=== PATIENT | female | born 1970 | race Caucasian/White ===

== ENCOUNTER → 2019-02-07 07:41 | Outpatient (CLI) | payer OTHER, SELFPAY ==
--- NOTE | 2019-02-07 07:45 | BI_ITS ---
MAMMOGRAPHY - BILATERAL SCREENING REASON FOR EXAM: Female, 48 years old. Routine annual screening examination. PERTINENT HISTORY: Grandmother with breast cancer. TECHNIQUE: Digital bilateral breast martin (3D mammographic acquisition) in the CC and MLO projections. 2-D mediolateral oblique (MLO) and craniocaudad (CC) views of both breasts were obtained. CAD: Full Field Digital Mammography with Computer Added Detection was performed. COMPARISON: Comparison is made with prior outside examination dated November 10, 2012. FINDINGS: Breast Composition: The breasts are almost entirely fatty. There are no dominant masses or suspicious calcifications. Stable small benign-appearing right axillary lymph nodes. No other significant abnormalities are identified. There has been no significant change since the prior study. BI/SCREEN MAMM (CAD) W/MARTIN BILAT IMPRESSION: Stable bilateral screening mammogram. Yearly follow-up mammogram recommended. (A) ASSESSMENT CATEGORY: BIRADS Category 2: Benign. A letter regarding these results will be sent to the patient by the facility within 30 days. Approximately 10% of breast cancers are not detected by mammography. A normal mammogram should not delay biopsy of a clinically suspicious abnormality. [id number] Electronically Signed: Kraig Estrada, at 10:59 EDT , Service support ,
== END ==
PROVIDERS: Family Provider Family Medicine; PCP Family Medicine; Referring Provider Nurse Practitioner Women's Health; Visit Provider Nurse Practitioner Women's Health
DX: Z12.31 Encounter for screening mammogram for malignant neoplasm of breast (principal)
CPT/HCPCS: 77063; 77067

== ENCOUNTER → 2019-06-08 | Outpatient (CLI) | payer OTHER, SELFPAY ==
[2019-06-08 08:57] VITALS: BMI 57.2
[2019-06-13 17:08] LABS: HPV APTIMA, High Risk Negative (Negative)
== END | disposition home or self-care (01) ==
LOC: LABSPEC 17:10
PROVIDERS: PCP Family Medicine; Referring Provider Nurse Practitioner Women's Health; Visit Provider Nurse Practitioner Women's Health
DX: Z12.4 Encounter for screening for malignant neoplasm of cervix (principal)
CPT/HCPCS: 87624; 88175; G0145

== ENCOUNTER → 2020-05-28 17:44 | Outpatient (CLI) | payer OTHER, SELFPAY ==
[2019-06-08 08:57] VITALS: BMI 57.2
== END ==
PROVIDERS: PCP Family Medicine; Referring Provider Family Medicine; Visit Provider Family Medicine
DX: U07.1 COVID-19 (principal); R50.9 Fever, unspecified; R07.9 Chest pain, unspecified; R09.89 Other specified symptoms and signs involving the circulatory and respiratory systems; R05 Cough
CPT/HCPCS: 87635; C9803; U0003

== ENCOUNTER → 2020-06-21 13:24 | Outpatient (CLI) | payer OTHER, SELFPAY ==
[2019-06-08 08:57] VITALS: BMI 57.2
[2020-06-21 14:56] LABS: Absolute Lymphocyte Count 2.71 X10^3/uL (0.83-4.51); Absolute Neutrophil Count 6.4 X10^3/uL (2.0-7.7); Basophil# 0.05 X10^3/uL; Basophil% 0.5 % (0-1); Eosinophil# 0.19 X10^3/uL; Eosinophils% 1.8 % (0-5); Hematocrit 43.8 % (37-47); Hemoglobin 13.5 g/dL (12.0-15.0); Lymphocyte # 2.71 X10^3/ul (4.0); Lymphocyte % 26.3 % (19-41); Mean Corp Hgb Conc 30.8 g/dL (32-36); Mean Corpuscular Hgb 27.6 pg (27.0-32.0); Mean Corpuscular Volume 89.4 fL (81-99); Mean Platelet Vol. 9.7 fl (6.2-12.0); Monocyte# 0.94 X10^3/uL; Monocyte% 9.1 % (0-10); NRBC Flagged by Analyzer 0 % (0-5); Platelet Count 404 K/mm3 (150-450); RBC Distribution Width CV 13.7 % (11.6-14.6); RBC Distribution Width SD 44.9 fl (35.1-43.9); White Blood Count 10.3 K/mm3 (4.4-11.0)
[2020-06-21 15:32] LABS: Vitamin D,25 Hydroxy 32.6 ng/mL
[2020-06-21 16:57] LABS: ALB/GLOB Ratio 0.8 RATIO (0.9-2.4); AST(SGOT) 10 U/L (15-37); Alanine Aminotransfer ALT/SGPT 25 U/L (13-56); Albumin, Serum 3.3 g/dL (3.2-5.0); Alkaline Phosphatase 60 U/L (45-117); Anion Gap 7 (5-15); BUN 16 mg/dL (7-18); BUN/Creat Ratio 23.6 RATIO (10-20); Calcium,Total 8.4 mg/dL (8.5-10.1); Chloride 106 mmol/L (98-107); Creatinine, Serum 0.68 mg/dL (0.55-1.02); EST Glomerular Filtration Rate 98 mL/min (>60); Est Glom Filt Rate - Afr Amer 119 mL/min (>60); Follicle Stimulating Hormone 3.8 mIU/mL; Globulin 4.2 g/dL (2.2-4.2); Glucose 77 mg/dL (74-106); Luteinizing Hormone 4.4 mIU/mL; Potassium 3.9 mmol/L (3.5-5.1); Protein, Total 7.5 g/dL (6.4-8.2); Sodium Level 140 mmol/L (136-145); T4 Free Direct 1.07 ng/dL (0.76-1.46); Thyroid Stim Hormone (TSH) 1.93 uIU/mL (0.358-3.74)
== END ==
PROVIDERS: PCP Family Medicine; Visit Provider Family Medicine
DX: U07.1 COVID-19 (principal); J12.82 Pneumonia due to coronavirus disease 2019; E55.9 Vitamin D deficiency, unspecified; R53.83 Other fatigue; F32.9 Major depressive disorder, single episode, unspecified; N92.0 Excessive and frequent menstruation with regular cycle
CPT/HCPCS: 36415; 80053; 82306; 83001; 83002; 84439; 84443; 85025

== ENCOUNTER → 2022-05-27 | Outpatient (CLI) | payer OTHER, SELFPAY ==
--- NOTE | 2022-05-27 09:47 | BI_ITS ---
MAMMOGRAPHY - BILATERAL SCREENING REASON FOR EXAM: Female, 51 years old. Routine annual screening examination. PERTINENT HISTORY: Grandmother with breast cancer. TECHNIQUE: Digital bilateral breast martin (3D mammographic acquisition) in the CC and MLO projections. 2-D mediolateral oblique (MLO) and craniocaudad (CC) views of both breasts were obtained. CAD: Full Field Digital Mammography with Computer Added Detection was performed. COMPARISON: Comparison is made with prior study 02/07/2019. FINDINGS: Breast Composition: The breasts are almost entirely fatty. There are no dominant masses or suspicious calcifications. Stable small benign-appearing bilateral axillary lymph nodes. No other significant abnormalities are identified. There has been no significant change since the prior study. BI/SCRN MAMM (CAD)W/MARTIN BILAT IMPRESSION: Stable bilateral screening mammogram. Yearly follow-up mammogram recommended. (A) ASSESSMENT CATEGORY: BIRADS Category 2: Benign. A letter regarding these results will be sent to the patient by the facility within 30 days. Approximately 10% of breast cancers are not detected by mammography. A normal mammogram should not delay biopsy of a clinically suspicious abnormality. [id number] Electronically Signed: Kraig Estrada MD at 8:57 EST ,
== END | disposition home or self-care (01) ==
LOC: OPBI 09:44
PROVIDERS: PCP Family Medicine; Visit Provider Nurse Practitioner Women's Health
DX: Z12.31 Encounter for screening mammogram for malignant neoplasm of breast (principal)
CPT/HCPCS: 77063; 77067

== ENCOUNTER → 2022-09-18 | Outpatient (CLI) | payer OTHER, SELFPAY ==
[2022-09-18 18:01] LABS: Absolute Lymphocyte Count 3.07 X10^3/uL (0.83-4.51); Absolute Neutrophil Count 5.1 X10^3/uL (2.0-7.7); Basophil# 0.07 X10^3/uL; Basophil% 0.8 % (0-1); Eosinophil# 0.17 X10^3/uL; Eosinophils% 1.8 % (0-5); Hematocrit 43.6 % (37-47); Hemoglobin 14.2 g/dL (12.0-15.0); Lymphocyte # 3.07 X10^3/ul (0.83-4.51); Lymphocyte % 33.4 % (19-41); Mean Corp Hgb Conc 32.6 g/dL (32-36); Mean Corpuscular Hgb 29.2 pg (27.0-32.0); Mean Corpuscular Volume 89.7 fL (81-99); Mean Platelet Vol. 9.9 fl (6.2-12.0); Monocyte# 0.75 X10^3/uL; Monocyte% 8.2 % (0-10); NRBC Flagged by Analyzer 0 % (0-5); Neutrophil # 5.08 X10^3/uL (2.7-7.7); Neutrophil % 55.3 % (47-70); Platelet Count 411 K/mm3 (150-450); RBC Distribution Width CV 12.5 % (11.6-14.6); RBC Distribution Width SD 41.2 fl (35.1-43.9); Red Blood Count 4.86 M/mm3 (4.2-5.4); White Blood Count 9.2 K/mm3 (4.4-11.0)
[2022-09-18 18:31] LABS: ALB/GLOB Ratio 0.9 RATIO (0.9-2.4); AST(SGOT) 9 U/L (15-37); Alanine Aminotransfer ALT/SGPT 19 U/L (13-56); Albumin, Serum 3.5 g/dL (3.2-5.0); Alkaline Phosphatase 49 U/L (45-117); Anion Gap 6 (5-15); BUN 8 mg/dL (7-18); BUN/Creat Ratio 12.8 RATIO (10-20); Calcium,Total 9.1 mg/dL (8.5-10.1); Chloride 105 mmol/L (98-107); Cholesterol 182 mg/dL (200); Creatinine, Serum 0.63 mg/dL (0.55-1.02); EST Glomerular Filtration Rate 107 mL/min (>60); Est Glom Filt Rate - Afr Amer 129 mL/min (>60); Glucose 75 mg/dL (74-106); High Density Lipoprotein 50 mg/dL; Protein, Total 7.5 g/dL (6.4-8.2); Sodium Level 137 mmol/L (136-145); Triglycerides 59 mg/dL; Very Low Density Lipoprotein 12 mg/dL (5-40)
[2022-09-18 18:39] LABS: Vitamin D,25 Hydroxy 34.4 ng/mL
== END | disposition home or self-care (01) ==
LOC: BFHLAB 16:37
PROVIDERS: PCP Nurse Practitioner Family; Visit Provider Nurse Practitioner Family
DX: Z00.00 Encounter for general adult medical examination without abnormal findings (principal); E55.9 Vitamin D deficiency, unspecified; R73.9 Hyperglycemia, unspecified
CPT/HCPCS: 36415; 80053; 80061; 82306; 83036; 85025

== ENCOUNTER → 2023-09-21 | Outpatient (CLI) | payer OTHER, SELFPAY ==
--- NOTE | 2023-09-21 08:12 | BI_ITS ---
MAMMOGRAPHY - BILATERAL SCREENING 3-D TOMOSYNTHESIS REASON FOR EXAM: Female, 53 years old. SCREENING PERTINENT HISTORY: No significant family history. TECHNIQUE: 2-D mammograms and 3-D Tomosynthesis of the breast (s) were performed. CAD was performed. COMPARISON: 05/27/2022 FINDINGS: The breast composition is composed of scattered fibroglandular density. Scattered benign calcifications are seen. No dense spiculated masses or suspicious microcalcifications are identified. No architectural distortion is identified. There is no skin thickening or retraction. There has been no significant change since the prior study. BI/SCRN MAMM (CAD)W/MARTIN BILAT IMPRESSION: No mammographic signs of malignancy. Routine yearly mammograms recommended. ASSESSMENT CATEGORY: BIRADS Category 1: Negative. A letter regarding these results will be sent to the patient by the facility within 30 days. FOLLOW UP RECOMMENDATION: Yearly follow up mammogram recommended. (A) Approximately 10% of breast cancers are not detected by mammography. A normal mammogram should not delay biopsy of a clinically suspicious abnormality. Electronically Signed: Tam Florez MD at 23:55 EDT ,
[2023-09-21 13:38] LABS: Absolute Lymphocyte Count 2.96 X10^3/uL (0.83-4.51); Absolute Neutrophil Count 4.2 X10^3/uL (2.0-7.7); Basophil# 0.08 X10^3/uL; Eosinophil# 0.17 X10^3/uL; Eosinophils% 2.1 % (0-5); Hematocrit 44.5 % (37-47); Hemoglobin 14.7 g/dL (12.0-15.0); Lymphocyte # 2.96 X10^3/ul (0.83-4.51); Lymphocyte % 36.7 % (19-41); Mean Corpuscular Hgb 29.1 pg (27.0-32.0); Mean Corpuscular Volume 87.9 fL (81-99); Mean Platelet Vol. 9.7 fl (6.2-12.0); Monocyte# 0.67 X10^3/uL; Monocyte% 8.3 % (0-10); NRBC Flagged by Analyzer 0 % (0-5); Neutrophil # 4.15 X10^3/uL (2.7-7.7); Neutrophil % 51.5 % (47-70); Platelet Count 428 K/mm3 (150-450); RBC Distribution Width CV 12.7 % (11.6-14.6); Red Blood Count 5.06 M/mm3 (4.2-5.4); White Blood Count 8.1 K/mm3 (4.4-11.0)
[2023-09-21 14:09] LABS: ALB/GLOB Ratio 0.9 RATIO (0.9-2.4); AST(SGOT) 12 U/L (15-37); Alanine Aminotransfer ALT/SGPT 28 U/L (13-56); Albumin, Serum 3.6 g/dL (3.2-5.0); Alkaline Phosphatase 53 U/L (45-117); Anion Gap 8 (5-15); BUN 8 mg/dL (7-18); BUN/Creat Ratio 12.3 RATIO (10-20); Calcium,Total 9.1 mg/dL (8.5-10.1); Chloride 106 mmol/L (98-107); Cholesterol 225 mg/dL (200); Creatinine, Serum 0.65 mg/dL (0.55-1.02); EST Glomerular Filtration Rate 102 mL/min (>60); Est Glom Filt Rate - Afr Amer 123 mL/min (>60); Globulin 4.1 g/dL (2.2-4.2); Glucose 100 mg/dL (74-106); High Density Lipoprotein 49 mg/dL; Protein, Total 7.7 g/dL (6.4-8.2); Sodium Level 139 mmol/L (136-145); Triglycerides 132 mg/dL; Very Low Density Lipoprotein 26 mg/dL (5-40); Vitamin D,25 Hydroxy 41.3 ng/mL
== END | disposition home or self-care (01) ==
PROVIDERS: PCP Nurse Practitioner Family; Referring Provider Nurse Practitioner Family; Visit Provider Nurse Practitioner Family
DX: Z12.31 Encounter for screening mammogram for malignant neoplasm of breast (principal); Z00.01 Encounter for general adult medical examination with abnormal findings; E55.9 Vitamin D deficiency, unspecified
CPT/HCPCS: 36415; 77063; 77067; 80053; 80061; 82306; 85025

== ENCOUNTER 2024-01-10 08:55 | Day surgery (SDC) | payer OTHER, SELFPAY ==
[2024-01-10] VITALS (7 sets, daily range): BP systolic 107–127; BP diastolic 68–80; PULSE 82–90; RESP 16–18; TEMP 36.1–36.3; O2SAT 98–100; BMI 45.9
--- NOTE | 2024-01-10 09:04 | PRE.ANES_ITS ---
ASA Classification* ASA Classification ASA Classification: 2 Assessment & Plan Anesthesia* Anesthesia Assessment Anesthesia Assessment: Discussed sedation and/or anesthesia options, risks, benefits, and alternatives with patient/parents/legal guardian/POA. Questions invited. The patient/parents/legal guardian/POA seems to understand and agrees to proceed with anesthesia plan. Reviewed the physical assessment, medical history, allergy history and patient home medications list prior to surgery/procedure/anesthetic and documented any changes. Performed airway and anesthesia risk assessments. Anesthesia Type Anesthesia Type: MAC Anesthesia Focused Assessment* Airway Assessment Mouth opens: >3 cm Mallampati Score: II Focused Labs Anesthesia Preop lab: CBC WBC 8.1 K/mm3 (4.4-11.0) 09/21/23 12:53 RBC 5.06 M/mm3 (4.2-5.4) 09/21/23 12:53 Hgb 14.7 g/dL (12.0-15.0) 09/21/23 12:53 Hct 44.5 % (37-47) 09/21/23 12:53 Plt Count 428 K/mm3 (150-450) 09/21/23 12:53 CHEMISTRY Potassium 4.0 mmol/L (3.5-5.1) 09/21/23 12:53 Sodium 139 mmol/L (136-145) 09/21/23 12:53 BUN 8 mg/dL (7-18) 09/21/23 12:53 Creatinine 0.65 mg/dL (0.55-1.02) 09/21/23 12:53 Glucose 100 mg/dL (74-106) 09/21/23 12:53 TSH 1.93 uIU/mL (0.358-3.74) 06/21/20 13:24 COAG Pre-Assessment Diagnosis/Proposed Procedure Planned Operative Procedure(s): COLONOSCOPY-OA Anesthesia History Anesthesia History - [employer]: Anesthesia History - [employer] Hx Hospitalization No 01/06/24 09:53 Any Problems With Anesthesia No 01/06/24 09:53 Cholinesterase deficiency No 01/06/24 09:53 You/Your Family Experience No 01/06/24 09:53 fever (hyperthermia) with Relationship Recent Exposure to Contagious Disease Does patient have nerve No 01/06/24 09:53 stimulator Patient instructed to have device shut off --Does patient have Pacemaker or ICD? When Was Last Pacemaker Check QUESTION #4 FULL TEXT: You/Your Family Experience fever (hyperthermia) with Anesthesia Last Oral Intake Last Oral intake: Last Oral Intake NPO since Meds taken in AM with sips of water? Meds patient instructed to take am of surgery PONV PONV - [employer]: PONV - [employer] Female Yes 01/06/24 09:53 HX of Motion Sickness No 01/06/24 09:53 HX of N/V After Surgery No 01/06/24 09:53 Non-Smoker Yes 01/06/24 09:53 Duration of Surgery greater No 01/06/24 09:53 than 60 minutes Number of Risk Factors 2 01/06/24 09:53 PONV Score Moderate Risk 01/06/24 09:53 Height & Weight Height & Weight: Anesthesia: Height & Weight Height 5 ft 3 in 11/23/23 11:58 Respiratory Assessment Respiratory Assessment - [employer]: Respiratory Tract Infection Hx - [employer] Hx Respiratory Tract Infection No 01/06/24 09:53 STOP Sleep Apnea STOP Sleep Apnea - [employer]: STOP Sleep Apnea - [employer] Hx Hypertension No 01/06/24 09:53 Hx Sleep Apnea No 01/06/24 09:53 CPAP BIPAP Do you snore loudly (louder No 01/06/24 09:53 than talking or can be heard Do you often feel tired/ No 01/06/24 09:53 fatigued/ sleepy during daytime? Has anyone observed you stop No 01/06/24 09:53 breathing during sleep? STOP Results Negative 01/06/24 09:53 QUESTION #5 FULL TEXT : Do you snore loudly (louder than talking or can be heard through closed doors)? Tobacco Use History Tobacco Use History - [employer]: Tobacco Use History - [employer] Tobacco Use Smoking Status Former smoker 01/06/24 09:53 Hx Tobacco Use No 01/06/24 09:53 Years Smoking Packs Smoked per Day Smoking Cessation Date was No - quit smoking greater 01/06/24 09:53 within the last 15 years than 15 years ago Hx Smoking Cessation Date Hx Smoking Cessation Counseling Hematologic Medial History Hematologic Hx - [employer]: Hematologic Medical Hx - dry cleaner Hx of Blood Transfusion No 01/06/24 09:53 Hx of Transfusion in last 3 No 01/06/24 09:53 Months Date of Last Transfusion (if within last 3 months) Ever experience any problems No 01/06/24 09:53 with transfusion(s)? Specify any problems Hx of Preganancy in last 3 No 01/06/24 09:53 Months Nurse Filling Out Transfusion VCHRISTIN 01/06/24 09:53 & Questions: Date: 01/06/24 01/06/24 09:53 Time: :54 01/06/24 09:53 Patient unable to answer at this time (ie. confused, unrespo /Reproduction History /Reproductive History - [employer]: /Reproductive Hx- [employer] Hx Now No 01/06/24 09:53 Gestational Age (in weeks): EDC: Hx Hx Para Hx Section SAB No 01/06/24 09:53 Active Medications Active Medications: Current Medications Generic Name Dose Route Start Last Admin Trade Name Freq PRN Reason Stop Dose Admin Lactated Ringer's 1,000 mls @ 15 mls/hr 01/10/24 09:15 IV .Q48H TAWNYA PFSH Medical History Wears glasses Post-menopausal Arthritis Former smoker Anxiety Attention deficit disorder (ADD) in adult Obesity Home Medications ?Medication ?Instructions ?Recorded ?Last Taken ?Type wxgahvphgtau-Cr-khvj-minerals 1 tab PO DAILY 06/08/19 Unknown History (Multiple Vitamin, Womens tablet) lorazepam 0.5 mg tablet 0.5 mg PO DAILY PRN anxiety 05/27/22 Unknown History cholecalciferol (vitamin D3) 50 50 mcg PO DAILY 11/23/23 Unknown History mcg (2,000 unit) capsule magnesium oxide 200 mg PO DAILY 11/23/23 Unknown History dextroamphetamine-amphetamine ER 2 cap PO DAILY 01/06/24 Unknown History 30 mg 24hr capsule,extend release zinc gluconate 50 mg tablet 50 mg PO DAILY 01/06/24 Unknown History Allergy/AdvReac Type Severity Reaction Status Date / Time naproxen Allergy Mild Swelling Verified 01/06/24 09:43 Sulfa (Sulfonamide Allergy Swelling Verified 01/06/24 09:43 Antibiotics) Family History Mother Heart disease Arthritis Grandmother Bleeding disorder Grandmother Breast cancer Father Heart disease Myocardial infarction Diabetes type 2 Grandfather , age 39 Myocardial infarction Brother Cancer Surgical History History of endometrial ablation History of carpal tunnel surgery Hx of section Social History adopted: No household members: family housing: house number of children: 3 current occupational status: employed current occupation: [employer] pets and animals: Yes sexually active: Yes Smoking Status: Former smoker second hand exposure: Yes alcohol intake: current alcohol intake frequency: a few times a month Alcohol type: wine substance use type: does not use seatbelt use: always do you feel safe at home: Yes additional social history: - Abundio Review of Systems (Anesthesia) ROS Narrative System reviewed and no additional complaints, except as documented.
[2024-01-10] MEDS: Lactated Ringers 1,000 ML 15 ML IV (09:19)
--- NOTE | 2024-01-10 10:21 | PCM.HP.STD ---
HPI - General General Date of Admission: 01/10/24 Date of Service: 01/10/24 Chief Complaint: Screening colonoscopy HPI Narrative ROBLES FELTON, is a 53 F who presents today for screening colonoscopy. She is never had a colonoscopy in the past. She denies any chest pain or shortness of breath. She has past medical history of mild anxiety and ADHD which is controlled with medicines. All other 16 review of systems are negative except those pertinent positive mentioned HPI. [facility] Medical History Wears glasses Post-menopausal Arthritis Former smoker Anxiety Attention deficit disorder (ADD) in adult Obesity Home Medications ?Medication ?Instructions ?Recorded ?Last Taken ?Type qzqaaumoxmye-Dc-crrs-minerals 1 tab PO DAILY 06/08/19 01/09/24 History (Multiple Vitamin, Womens tablet) lorazepam 0.5 mg tablet 0.5 mg PO DAILY PRN anxiety 05/27/22 Unknown History cholecalciferol (vitamin D3) 50 50 mcg PO DAILY 11/23/23 01/09/24 History mcg (2,000 unit) capsule magnesium oxide 200 mg PO DAILY 11/23/23 01/09/24 History dextroamphetamine-amphetamine ER 2 cap PO DAILY 01/06/24 01/09/24 History 30 mg 24hr capsule,extend release zinc gluconate 50 mg tablet 50 mg PO DAILY 01/06/24 01/09/24 History Allergy/AdvReac Type Severity Reaction Status Date / Time naproxen Allergy Mild Swelling Verified 01/10/24 09:18 Sulfa (Sulfonamide Allergy Swelling Verified 01/10/24 09:18 Antibiotics) Family History Mother Heart disease Arthritis Grandmother Bleeding disorder Grandmother Breast cancer Father Heart disease Myocardial infarction Diabetes type 2 Grandfather , age 39 Myocardial infarction Brother Cancer Surgical History History of endometrial ablation History of carpal tunnel surgery Hx of section Social History adopted: No household members: family housing: house number of children: 3 current occupational status: employed current occupation: [employer] pets and animals: Yes sexually active: Yes Smoking Status: Former smoker second hand exposure: Yes alcohol intake: current alcohol intake frequency: a few times a month Alcohol type: wine substance use type: does not use seatbelt use: always do you feel safe at home: Yes additional social history: - Abundio ROS Review of Systems ROS Unobtainable: other Constitutional Constitutional: Denies fatigue, fever(s), poor appetite, weight gain or weight loss ENT HEENT: Denies mouth lesions Cardiovascular Cardiovascular: Denies abdominal bloating, abdominal edema or abdominal pain Respiratory/Chest Respiratory/Chest: Denies change in mental status, change in phlegm color, chest congestion or chest tightness Gastrointestinal Gastrointestinal: Denies belching, bloating, change in bowel habits, change in stool character, chewing difficulty, coffee ground emesis, constipation, cramping, diarrhea, dyspepsia, dysphagia, early satiety, excessive flatus, fecal incontinence, heartburn, hematemesis, hematochezia, hemorrhoids, loose stools, melena, nausea, odynophagia, rectal bleeding, tenesmus, vomiting or weight changes Genitourinary Genitourinary: Denies abdominal discomfort, burning urination or itching Musculoskeletal Musculoskeletal: Reports as per HPI; Denies muscle weakness or myalgias Integumentary Integumentary: Denies jaundice Neurologic Neurologic: Denies lack of coordination or weakness Psychiatric Psychiatric: Denies confusion, depression, memory loss, mood swings, paranoia or suicidal ideation Endocrine Endocrinology: Denies systems reviewed and no addt'l complaints, except as documented Hematologic/Lymphatic Hematologic/Lymphatic: Denies anemia, easy bleeding, easy bruising or lymphadenopathy Allergic/Immunologic Allergic/Immunologic: Denies systems reviewed and no addt'l complaints, except as documented Vital Signs Vital Signs Vital Signs: 01/10/24 09:20 01/10/24 09:20 Temperature 97.3 F L Temperature Source Temporal Pulse Rate 89 Respiratory Rate 18 Respiratory Pattern Normal Blood Pressure 127/73 H Blood Pressure Mean 91 Blood Pressure Source Monitor Blood Pressure Position Sitting Blood Pressure Location Right Arm Pulse Ox 100 Oxygen Delivery Method Room Air Weight Weight: 259 lb 6.4 oz Body Mass Index (BMI) 45.9 Physical Exam Const alert, oriented x3, no apparent distress, healthy appearing and well nourished General Appearance: cooperative, comfortable, well kempt and well developed Orientation / Consciousness: awake and oriented to person HEENT Head and Scalp: normocephalic and atraumatic Face and Sinus: normal facial exam Mouth: oral and palatal mucosa normal Eyes General Eye: normal appearance of both eyes Neck full ROM Lymph Lymphatic: no lymphadenopathy noted Chest inspection of chest normal Resp normal respiratory effort and no use of accessory muscles Cardio regular rate and regular rhythm GI normal to inspection, nondistended, normoactive bowel sounds, soft to palpation, non-tender, non-distended and no masses Auscultation: normoactive bowel sounds Palpation: soft Percussion: normal to percussion Rectal Exam: visual inspection normal and normal sphincter tone no CVA tenderness Back/Spine no CVA tenderness and normal ROM Extremity normal to inspection Peripheral Pulses: Yes pulses 2+ throughout Skin no rashes or lesions noted General Skin Exam: no breakdown, elasticity normal and turgor normal Neuro oriented x3 Motor Exam: strength 5/5 throughout Psych mental status grossly normal Appearance: grossly normal Attitude: calm Activity / Motor Behavior: appropriate eye contact Speech: normal speech Thought Process: normal thought process Thought Content: normal thought content Attention / Concentration: attention grossly intact Memory / Cognition: memory grossly intact Insight: insight good Judgement: judgement good Assessment & Plan Assessment/Plan (1) Encounter for screening for malignant neoplasm of colon: PLAN: She was explained alternatives, risk, benefits including not withstanding bleeding, infection, sepsis, perforation, need for emergent urgent . She will have an ASA of 3.
--- NOTE | 2024-01-10 10:48 | OP.CCLET_ITS ---
01/10/2024 Evgeny Lockwood Re : Colonoscopy procedure for Jackie Woods Dear Brennen This procedure was performed on Wednesday, January 10, 2024. My impressions and recommendations are as follows: Impressions : - Diverticulosis in the recto-sigmoid colon, in the sigmoid colon and in the descending colon. - The examination was otherwise normal on direct and retroflexion views. - No specimens collected. Recommendations : - Discharge patient to home. - Resume previous diet. - Continue present medications. - Repeat colonoscopy in 10 years for screening purposes. My findings are described in the full procedure note, which is enclosed. If I can be of further assistance, please feel free to contact me at . Sincerely, Trell Reyes, 01/10/2024 10:48:14 AM This report has been signed electronically.
--- NOTE | 2024-01-10 10:48 | OP.COLON_ITS ---
Patient Name: Jackie Woods Procedure Date: 01/10/2024 10:24 AM Date of : 1970 Age: 53 Procedure: Colonoscopy Indications: Screening for colorectal malignant neoplasm Providers: Trell Reyes DO Medicines: Monitored Anesthesia Care Patient Profile: This is a 53 year old female. Refer to note in patient chart for documentation of history and physical. Last Colonoscopy: none. The patient's first colonoscopy is today. Complications: No immediate complications. Procedure: Pre-Anesthesia Assessment: - Prior to the procedure, a History and Physical was performed, and patient medications and allergies were reviewed. The patient is competent. The risks and benefits of the procedure and the sedation options and risks were discussed with the patient. All questions were answered and informed consent was obtained. Patient identification and proposed procedure were verified by the physician in the pre-procedure area. Mental Status Examination: alert and oriented. Airway Examination: normal oropharyngeal airway and neck mobility. Respiratory Examination: clear to auscultation. CV Examination: normal. Prophylactic Antibiotics: The patient does not require prophylactic antibiotics. Prior Anticoagulants: The patient has taken no anticoagulant or antiplatelet agents except for NSAID medication. ASA Grade Assessment: II - A patient with mild systemic disease. After reviewing the risks and benefits, the patient was deemed in satisfactory condition to undergo the procedure. The anesthesia plan was to use monitored anesthesia care (MAC). Immediately prior to administration of medications, the patient was re-assessed for adequacy to receive sedatives. The heart rate, respiratory rate, oxygen saturations, blood pressure, adequacy of pulmonary ventilation, and response to care were monitored throughout the procedure. The physical status of the patient was re-assessed after the procedure. After I obtained informed consent, the scope was passed under direct vision. Throughout the procedure, the patient's blood pressure, pulse, and oxygen saturations were monitored continuously. The colonoscope was introduced through the anus and advanced to the cecum, identified by appendiceal orifice and ileocecal valve. The colonoscopy was performed without difficulty. The patient tolerated the procedure well. The quality of the bowel preparation was adequate. The ileocecal valve, appendiceal orifice, and rectum were photographed. Scope In: 10:31:45 AM Scope Withdrawal Time 0 hours 8 minutes 34 seconds Scope Out: 10:44:04 AM Total Procedure Duration Time 0 hours 12 minutes 19 seconds Findings: The perianal and digital rectal examinations were normal. Multiple small-mouthed diverticula were found in the recto-sigmoid colon, sigmoid colon and descending colon. The exam was otherwise without abnormality on direct and retroflexion views. Impression: - Diverticulosis in the recto-sigmoid colon, in the sigmoid colon and in the descending colon. - The examination was otherwise normal on direct and retroflexion views. - No specimens collected. Recommendation: - Discharge patient to home. - Resume previous diet. - Continue present medications. - Repeat colonoscopy in 10 years for screening purposes. Procedure Code(s): --- Professional --- G0121, Colorectal cancer screening; colonoscopy on individual not meeting criteria for high risk CPT copyright 2021 [employer]. All rights reserved. The codes documented in this report are preliminary and upon pierce and shave press operator review may be revised to meet current compliance requirements. Trell Reyes DO 01/10/2024 10:48:14 AM This report has been signed electronically. Number of Addenda: 0 Note Initiated On: 01/10/2024 10:24 AM
--- NOTE | 2024-01-10 10:52 | PCM.POST.ANE ---
Anesthesia: Postop Eval I Current Vital Signs Temperature: 97.2 F Pulse Rate: 84 Blood Pressure: 125/68 Respiratory Rate: 16 Pulse Ox: 98 Oxygen Delivery Method: Room Air Assessment Airway patent: Yes Spontaneous unlabored respirations: Yes Mental status: Awake and Calm nausea: No Vomiting: No Anesthesia Complication: No Fluid Hydration Crystalloid volume administer (ml): 500 Total IV fluid infused: 500 Progress Note Anesthesia document: Postop Eval 1 completed: Yes
--- NOTE | 2024-01-10 10:55 | PCM.POSTANE2 ---
Anesthesia Postop Eval I Sum Postop Eval Completion status Anesthesia document: Postop Eval 1 completed: Yes Anesthesia Postop Eval I Summary Anesthesia Postop Eval I Summary: Anesthesia Postop Eval I: Assessment Summary Airway patent Yes 01/10/24 10:53 [email or web address] Spontaneous unlabored Yes 01/10/24 10:53 [email or web address] respirations Mental status Awake,Calm 01/10/24 10:53 [email or web address] nausea No 01/10/24 10:53 [email or web address] Vomiting No 01/10/24 10:53 [email or web address] Anesthesia Postop Eval I: Fluid Summary Crystalloid volume administer 500 01/10/24 10:53 [email or web address] (ml) Colloids volume administered ( ml) Blood Product volume administered (ml) Total IV fluid infused 500 01/10/24 10:53 [email or web address] Anesthesia Postop Eval I: Summary Notes Anesthesia Complication No 01/10/24 10:53 [email or web address] Anesthesia Complication Comment: Post-operative progress note Anesthesia: Postop Eval II Evaluation Mental status: Awake Pain Level: 0 nausea: No Vomiting: No
== END 2024-01-10 11:16 | disposition home or self-care (01) ==
LOC: EN 08:57 → AC 08:58
PROVIDERS: PCP Nurse Practitioner Family; Referring Provider Nurse Practitioner Family; Visit Provider Internal Medicine Gastroenterology
PROC: 0DJD8ZZ Inspection of Lower Intestinal Tract, Via Natural or Artificial Opening Endoscopic (ICD-10-PCS; CPT 45378; principal; 2024-01-10 09:55)
DX: Z12.11 Encounter for screening for malignant neoplasm of colon (principal); K57.30 Diverticulosis of large intestine without perforation or abscess without bleeding; F41.9 Anxiety disorder, unspecified; Z79.899 Other long term (current) drug therapy; Z87.891 Personal history of nicotine dependence
CPT/HCPCS: 45378; J7120; J2405

== ENCOUNTER → 2024-09-28 | Outpatient (CLI) | payer BC, SELFPAY ==
[2024-09-28 10:41] LABS: Absolute Lymphocyte Count 2.69 X10^3/uL (0.83-4.51); Absolute Neutrophil Count 5.5 X10^3/uL (2.0-7.7); Basophil# 0.07 X10^3/uL; Basophil% 0.8 % (0-1); Eosinophil# 0.18 X10^3/uL; Hematocrit 42.5 % (37-47); Hemoglobin 13.7 g/dL (12.0-15.0); Lymphocyte # 2.69 X10^3/ul (0.83-4.51); Lymphocyte % 29.4 % (19-41); Mean Corp Hgb Conc 32.2 g/dL (32-36); Mean Corpuscular Volume 86.9 fL (81-99); Mean Platelet Vol. 9.8 fl (6.2-12.0); Monocyte# 0.67 X10^3/uL; Monocyte% 7.3 % (0-10); NRBC Flagged by Analyzer 0 % (0-5); Neutrophil # 5.48 X10^3/uL (2.7-7.7); Neutrophil % 59.8 % (47-70); Platelet Count 397 K/mm3 (150-450); RBC Distribution Width CV 13.7 % (11.6-14.6); RBC Distribution Width SD 43.7 fl (35.1-43.9); Red Blood Count 4.89 M/mm3 (4.2-5.4); White Blood Count 9.2 K/mm3 (4.4-11.0)
[2024-09-28 11:35] LABS: ALB/GLOB Ratio 1.3 RATIO (0.9-2.4); AST(SGOT) 18 U/L (<=31); Alanine Aminotransfer ALT/SGPT 24 U/L (<=34); Albumin, Serum 4.3 g/dL (3.5-5.0); Alkaline Phosphatase 70 U/L (35-104); Anion Gap 14 (5-15); BUN 11 mg/dL (4-19); BUN/Creat Ratio 32.2 RATIO (10-20); Calcium,Total 9.1 mg/dL (7.6-11.0); Carbon Dioxide 21.4 mmol/L (21.0-32.0); Chloride 104 mmol/L (98-108); Cholesterol 249 mg/dL (<=200); Creatinine, Serum 0.34 mg/dL (0.70-1.20); EST Glomerular Filtration Rate 123 (>60); Estradiol 12.3 pg/mL; Follicle Stimulating Hormone 37.1 mIU/mL; Globulin 3.2 g/dL (2.2-4.2); Glucose 92 mg/dL (70-99); High Density Lipoprotein 37 mg/dL; Low Density Lipoprotein Calc. 145 mg/dL; Luteinizing Hormone 27.4 mIU/mL; Potassium 3.8 mmol/L (3.3-5.1); Protein, Total 7.4 g/dL (5.9-8.4); Sodium Level 140 mmol/L (133-145); Triglycerides 336 mg/dL; Very Low Density Lipoprotein 67 mg/dL (5-40); Vitamin D,25 Hydroxy 79.2 ng/mL (30-100); cholesterol:hdl ratio screen 6.69
[2024-09-28 12:18] LABS: LDH 162 U/L (84-246)
[2024-09-29 05:07] LABS: PROGESTERONE 0.3 ng/mL (.); PROLACTIN 10.5 ng/mL (3.6-25.2)
== END | disposition home or self-care (01) ==
LOC: MTLAB 08:44
PROVIDERS: PCP Nurse Practitioner Family; Referring Provider Nurse Practitioner Family; Visit Provider Nurse Practitioner Family
DX: Z00.01 Encounter for general adult medical examination with abnormal findings (principal); E55.9 Vitamin D deficiency, unspecified; N95.1 Menopausal and female climacteric states
CPT/HCPCS: 36415; 80053; 80061; 82306; 82670; 83001; 83002; 83615; 84144; 84146; 85025

== ENCOUNTER → 2024-10-18 | Outpatient (CLI) | payer BC, SELFPAY ==
--- NOTE | 2024-10-18 07:23 | BI_ITS ---
EXAM: SCRN MAMM (CAD)W/MARTIN BILAT DATE: 10/18/2024 CLINICAL HISTORY: F, Age 54 y/o , SCREENING BREAST CANCER RISK ASSESSMENT: Not available at this time. TECHNIQUE: Bilateral screening digital breast tomosynthesis with 2D and 3D images. Computer aided detection. COMPARISON: Prior exam(s) dated 09/21/2023, 05/27/2022, 02/07/2019. FINDINGS: TISSUE DENSITY: The breast tissue is almost entirely fatty. Bilateral Breast Mammographic Findings: No significant masses, calcifications or other abnormalities are identified. BI/SCRN MAMM (CAD)W/MARTIN BILAT IMPRESSION: There is no mammographic evidence of malignancy in either breast. OVERALL FINAL ASSESSMENT BI-RADS 1: NEGATIVE. RECOMMEND ANNUAL MAMMOGRAPHIC SCREENING. RECOMMENDATION: Routine annual follow-up in 1 Year A letter with findings and recommendations will be mailed to the patient. Reading Location: [id number]
--- OUTSIDE RECORDS SUMMARY | 2024-10-18 07:36 | XMS RPT_ITS | CCD ---
Author Organization [facility] Care Team Providers Care Net Technical Architect Name Role Phone Dr. Neeraj Wright Primary Care Provider Dr. Neeraj Wrgiht Referring Provider Navjot YARN MAN, YARN MAN-C Shellie Attending Provider [phone] Brennen YARN MAN-C, Araceli Primary Care Provider Brennen YARN MAN-C, Araceli Attending Provider Brennen YARN MAN-C, Araceli Referring Provider Brennen, Araceli Primary Care Unavailable Friend, Trell Attending Unavailable Brennen, Araceli Referring Unavailable Brennen, Araceli Primary Care Unavailable Brennen, Araceli Attending Unavailable Brennen, Araceli Referring Unavailable Brennen, Araceli Primary Care Unavailable Brennen, Araceli Attending Unavailable Brennen, Araceli Referring Unavailable JhSimran Attending Unavailable Brennen, Araceli Primary Care Unavailable Brennen, Araceli Primary Care Unavailable Friend, Trell Consulting Unavailable Friend, Trell Attending Unavailable Brennen, Araceli Referring Unavailable Allergies Allergy Classification Reported Allergen(s) Allergy Type Date of Onset Reaction(s) Facility (3 sources) Naproxen Drug Allergy 3 [facility] Comment on above: tongue swelling (3 sources) Sulfonamides (Antibiotic) Allergy to substance 3 [facility] Comment on above: tongue swelling (1 source) Naproxen Drug Allergy 4 [facility] Repository (1 source) Sulfonamides (Antibiotic) Drug allergy (disorder) 4 [facility] Medications Current Medications Medication Drug Class(es) Dates Sig (Normalized) Sig (Original) 24 hr amphetamine aspartate 7.5 mg / amphetamine sulfate 7.5 mg / dextroamphetamine saccharate 7.5 mg / dextroamphetamine sulfate 7.5 mg extended release oral capsule (4 sources) Central Nervous System Stimulant Start: 01-06-2024 Dextroamphetamin e-Amphetamine 30 mg capsule,extended release 24hr Active 2 NMA PO DAILY January 06, 2024 12:00am Start: 05-27-2022 End: 01-06-2024 Dextroamphetamine-Amphetamin e (Adderall) 30 mg tablet Discontinued 45 mg PO DAILY May 27, 2022 1:00am January 06, 2024 9:44am cholecalciferol 0.05 mg oral capsule (1 source) Vitamin D Start: 11-23-2023 take 1 capsule by mouth once daily Cholecalciferol (Vitamin D3) 50 mcg (2,000 unit) capsule Active 50 ug PO DAILY November 23, 2023 12:00am LORazepam 0.5 mg oral tablet (3 sources) Benzodiazepine Start: 05-27-2022 take 1 tablet by mouth once daily as needed for anxiety Lorazepam 0.5 mg tablet Active 0.5 mg PO DAILY as needed for anxiety May 27, 2022 1:00am magnesium oxide 200 mg oral tablet (1 source) Start: 11-23-2023 take 1 tablet by mouth once daily Magnesium Oxide 200 mg magnesium tablet Active 200 mg PO DAILY November 23, 2023 12:00am Ruqylzcbdlfr-Di-Yxzg- Minerals (Multiple Vitamin, Womens) tablet (3 sources) Start: 06-08-2019 Yoklrlxibzsw-Gd-Tuks -Minerals (Multiple Vitamin, Womens) tablet Active 1 {tbl} PO DAILY June 08, 2019 1:00am Start: 06-08-2019 Multivitamin-C k-Xiot-Gkbprusz (Multiple Vitamin, Womens) tablet Active TABLET PO June 08, 2019 1:00am Start: 06-08-2019 Multivitamin-C m-Phqd-Iwygrlsp (Multiple Vitamin, Womens) tablet Active TABLET PO June 08, 2019 12:00am zinc gluconate 50 mg oral tablet (1 source) Start: 01-06-2024 take 1 tablet by mouth once daily Zinc Gluconate 50 mg tablet Active 50 mg PO DAILY January 06, 2024 12:00am Completed/Discontinued Medications Medication Drug Class(es) Dates Sig (Normalized) Sig (Original) azithromycin 250 mg oral tablet (3 sources) Macrolide Antimicrobial Start: 01-23-2018 End: 06-08-2019 take 2-5 tablets by mouth once daily Azithromycin (Zithromax Z-Derick) 250 mg tablet Discontinued 0 PO .COMPLEX January 23, 2018 12:00am June 08, 2019 9:29am take 500 mg today (day 1), then 250 mg for 4 days (days 2-5) PO fluticasone propionate 0.05 mg/actuat metered dose nasal spray (3 sources) Corticosteroid Start: 01-23-2018 End: 06-08-2019 take 50 ug nasal route once daily Fluticasone Propionate (Flonase Allergy Relief) 50 mcg/actuation spray,suspension Discontinued 2 NMA INTRANASAL DAILY 9.January 23, 2018 12:00am June 08, 2019 9:29am administer into each nostril Start: 01-23-2018 End: 06-08-2019 take 1 spray(s) nasal route once daily Fluticasone Propionate (Flonase Allergy Relief) 50 mcg/actuation spray,suspension Discontinued 2 SPRAY INTRANASAL DAILY 01.09January 23, 2018 12:00am June 08, 2019 9:29am administer into each nostril Problems Active Problems Problem Classification Problem Date Documented Date Episodic/Chronic Anxiety disorders (3 sources) Anxiety; Translations: [Anxiety disorder, unspecified] 05-27-2022 Chronic Disorders usually diagnosed in infancy, childhood, or adolescence (3 sources) Adult attention deficit hyperactivity disorder ; Translations: [Other specified behavioral and emotional disorders with onset usually occurring in childhood and adolescence] 05-27-2022 Chronic Other screening for suspected conditions (not mental disorders or infectious disease) (4 sources) Patient encounter status; Translations: [Encounter for screening for malignant neoplasm of colon] Onset: 01-17-2024 11-23-2023 Episodic Past or Other Problems Problem Classification Problem Date Documented Da te Episodic/Chronic Unclassified (3 sources) uterine ablation 05-27-2022 Results Test Name Value Interpretation Reference Range Facility PROGESTERONE 4317on 09-30-19 25 PROGESTERONE 0.3 ng/mL Normal . [facility] Comment on above: Order Comment: N Result Comment: Foll icular phase 0.1 - 0.9 Luteal phase 1.8 - 23.9 Ovulation phase 0.1 - 12.0 First trimester 11.0 - 44.3 Second trimester 25.4 - 83.3 Third trimester 58.7 - 214.0 Postmenopausal 0.0 - 0.1 Performed at: [facility] [address] [place], [place] [id number] [employer]: David Gates PhD, Phone: [phone] Performed By: #### L 100.0100, L506.1001, L500.4100, L3100.5170, L504.2610, L3300.1750, L3100.5400, L801.2600, L3100.5125, L500.4050 ####[facility] [address] [place], [address] PROLACTIN 4465on 09-29-2024 PROLACTIN 10.5 ng/mL Normal 3.6-25.2 [facility] Comment on above: Result Comment: Perf ormed at: [id number] [place], [place] [id number] [employer]: David Gates PhD, Phone: [phone] Performed By: #### L 100.0100, L506.1001, L500.4100, L3100.5170, L504.2610, L3300.1750, L3100.5400, L801.2600, L3100.5125, L500.4050 ####[facility] [address] [facility] [place], [address] Absolute lymphocyte countOrd ered By: Araceli Hutton on 09-28-2024 Lymphocytes Auto (Unsp spec) [#/Vol] 2.69 10*3/uL 0.83-4.51 [facility] Absolute neutrophil countOrd ered By: Tuthill Brennen on 09-28-2024 Neutrophils (Bld) [#/Vol] 5.5 10*3/uL 2.0-7.7 [facility] Anion gap in Serum or Plasma Ordered By: Araceli Hutton on 09-28-2024 Anion gap [Moles/Vol] 14 mmol/L 5-15 [facility] Automated lymphocyte count a s percentage of total leukocytesOrdered By: Araceli Hutton on 09-28-2024 Lymphocytes/100 WBC Auto (Unsp spec) 29.4 % 19-41 [facility] BUN/creatinine ratioOrdered By: Araceli Hutton on 09-28-2024 Urea nitrogen/Creatinine [Mass ratio] 32.2 mg/mg High 10-20 [facility] Basophil percentageOrdered B y: Araceli Hutton on 09-28-2024 Basophils/100 WBC (Bld) 0.8 % 0-1 [facility] Bilirubin, totalOrdered By: Araceli Hutton on 09-28-2024 Bilirubin [Mass/Vol] 0.20 mg/dL 0.00-1.30 [facility] CBC W/Diff, Automatedon 09-01 Absolute Lymph 2.69 X10 3/uL Normal 0.83-4.51 [facility] Comment on above: Performed By: #### L 100.0100, L506.1001, L500.4100, L3100.5170, L504.2610, L3300.1750, L3100.5400, L801.2600, L3100.5125, L500.4050 #### [facility] [address] [place], [address] Absolute Neut 5.5 X10 3/uL Normal 2.0-7.7 [facility] Comment on above: Performed By: #### L 100.0100, L506.1001, L500.4100, L3100.5170, L504.2610, L3300.1750, L3100.5400, L801.2600, L3100.5125, L500.4050 #### [facility] [address] [place], [address] Basophils/100 WBC (Bld) 0.8 % Normal 0-1 [facility] Comment on above: Performed By: #### L 100.0100, L506.1001, L500.4100, L3100.5170, L504.2610, L3300.1750, L3100.5400, L801.2600, L3100.5125, L500.4050 #### [facility] [address] [place], [place], [phone] Eosinophils/100 WBC (Bld) 2.0 % Normal 0-5 [facility] Comment on above: Performed By: #### L 100.0100, L506.1001, L500.4100, L3100.5170, L504.2610, L3300.1750, L3100.5400, L801.2600, L3100.5125, L500.4050 #### [facility] [address] [facility] [place], [place], [phone] Erythrocyte distribution width (RBC) [Ratio] 13.7 % Normal 11.6-14.6 [facility] Comment on above: Performed By: #### L 100.0100, L506.1001, L500.4100, L3100.5170, L504.2610, L3300.1750, L3100.5400, L801.2600, L3100.5125, L500.4050 #### [facility] [address] [facility] [place], [address] (046) Hematocrit (Bld) [Volume fraction] 42.5 % Normal 37-47 [facility] Comment on above: Performed By: #### L 100.0100, L506.1001, L500.4100, L3100.5170, L504.2610, L3300.1750, L3100.5400, L801.2600, L3100.5125, L500.4050 #### [facility] [address] [place], [place], [phone] Hemoglobin (Bld) [Mass/Vol] 13.7 g/dL Normal 12.0-15.0 [facility] Comment on above: Performed By: #### L 100.0100, L506.1001, L500.4100, L3100.5170, L504.2610, L3300.1750, L3100.5400, L801.2600, L3100.5125, L500.4050 #### [facility] [address] [place], [address] IG% 0.700 Normal 0.0-0.9 [facility] Comment on above: Result Comment: IG% - Immature Granulocytes (promyelocytes, myelocytes and metamyelocytes) > 1% indicates that a LEFT SHIFT is Present. Performed By: #### L 100.0100, L506.1001, L500.4100, L3100.5170, L504.2610, L3300.1750, L3100.5400, L801.2600, L3100.5125, L500.4050 #### [facility] [address] [facility] [place], [address] ( Lymphocytes/100 WBC (Bld) 29.4 % Normal 19-41 [facility] Comment on above: Performed By: #### L 100.0100, L506.1001, L500.4100, L3100.5170, L504.2610, L3300.1750, L3100.5400, L801.2600, L3100.5125, L500.4050 #### [facility] [address] [facility] [place], [place], [phone] MCH (RBC) [Entitic mass] 28.0 pg Normal 27.0-32.0 [facility] Comment on above: Performed By: #### L 100.0100, L506.1001, L500.4100, L3100.5170, L504.2610, L3300.1750, L3100.5400, L801.2600, L3100.5125, L500.4050 #### [facility] [address] [place], [address] MCHC (RBC) [Mass/Vol] 32.2 g/dL Normal 32-36 [facility] Comment on above: Performed By: #### L 100.0100, L506.1001, L500.4100, L3100.5170, L504.2610, L3300.1750, L3100.5400, L801.2600, L3100.5125, L500.4050 #### [facility] [address] [place], [place], [phone] ([phone] MCV (RBC) [Entitic vol] 86.9 fL Normal 81-99 [facility] Comment on above: Performed By: #### L 100.0100, L506.1001, L500.4100, L3100.5170, L504.2610, L3300.1750, L3100.5400, L801.2600, L3100.5125, L500.4050 #### [facility] [address] [facility] [place], [address] (048) Monocytes/100 WBC (Bld) 7.3 % Normal 0-10 [facility] Comment on above: Performed By: #### L 100.0100, L506.1001, L500.4100, L3100.5170, L504.2610, L3300.1750, L3100.5400, L801.2600, L3100.5125, L500.4050 #### [facility] [address] [facility] [place], [place], [phone] ([phone]) Neutrophils/100 WBC (Bld) 59.8 % Normal 47-70 [facility] Comment on above: Performed By: #### L 100.0100, L506.1001, L500.4100, L3100.5170, L504.2610, L3300.1750, L3100.5400, L801.2600, L3100.5125, L500.4050 #### [facility] [address] [place], [address] (602) Nucleated RBC (Bld) [#/Vol] 0 10*3/uL Normal 0-5 [facility] Comment on above: Performed By: #### L 100.0100, L506.1001, L500.4100, L3100.5170, L504.2610, L3300.1750, L3100.5400, L801.2600, L3100.5125, L500.4050 #### [facility] [address] [place], [address] Platelet mean volume (Bld) [Entitic vol] 9.8 fL Normal 6.2-12.0 [facility] Comment on above: Performed By: #### L 100.0100, L506.1001, L500.4100, L3100.5170, L504.2610, L3300.1750, L3100.5400, L801.2600, L3100.5125, L500.4050 #### [facility] [address] [place], [address] (342) Platelets (Bld) [#/Vol] 397 10*3/uL Normal 150-450 [facility] Comment on above: Performed By: #### L 100.0100, L506.1001, L500.4100, L3100.5170, L504.2610, L3300.1750, L3100.5400, L801.2600, L3100.5125, L500.4050 #### [facility] [address] [place], [address] (071) RBC (Bld) [#/Vol] 4.89 10*6/uL Normal 4.2-5.4 [facility] Comment on above: Performed By: #### L 100.0100, L506.1001, L500.4100, L3100.5170, L504.2610, L3300.1750, L3100.5400, L801.2600, L3100.5125, L500.4050 #### [facility] [address] [place], [address] RDW SD 43.7 fl Normal 35.1-43.9 [facility] Comment on above: Performed By: #### L 100.0100, L506.1001, L500.4100, L3100.5170, L504.2610, L3300.1750, L3100.5400, L801.2600, L3100.5125, L500.4050 #### [facility] [address] [place], [address] WBC (Bld) [#/Vol] 9.2 10*3/uL Normal 4.4-11.0 [facility] Comment on above: Performed By: #### L 100.0100, L506.1001, L500.4100, L3100.5170, L504.2610, L3300.1750, L3100.5400, L801.2600, L3100.5125, L500.4050 #### [facility] [address] [place], [address] Calculated very low density lipoprotein (VLDL) cholesterol measurementOrdered By: Araceli Hutton on 09-28-2024 Calculated very low density lipoprotein (VLDL) cholesterol measurement 67 mg/dL High 5-40 [facility] Carbon dioxide, total [Moles /volume] in Central venous bloodOrdered By: Araceli Hutton on 09-28-2024 CO2 [Moles/Vol] 21.4 mmol/L 21.0-32.0 [facility] Chloride assayOrdered By: Ra betzy Hutton on 09-28-2024 Chloride [Moles/Vol] 104 mmol/L 98-108 [facility] Comprehensive Metabolic Prof ilon 09-28-2024 Albumin [Mass/Vol] 4.3 g/dL Normal 3.5-5.0 [facility] Comment on above: Performed By: #### L 100.0100, L506.1001, L500.4100, L3100.5170, L504.2610, L3300.1750, L3100.5400, L801.2600, L3100.5125, L500.4050 #### [facility] [address] [place], [place], [phone] Albumin/Globulin [Mass ratio] 1.3 {ratio} Normal 0.9-2.4 [facility] Comment on above: Performed By: #### L 100.0100, L506.1001, L500.4100, L3100.5170, L504.2610, L3300.1750, L3100.5400, L801.2600, L3100.5125, L500.4050 #### [facility] [address] [place], [address] (763) ALK PHOS 70 U/L Normal 35-104 [facility] Comment on above: Performed By: #### L 100.0100, L506.1001, L500.4100, L3100.5170, L504.2610, L3300.1750, L3100.5400, L801.2600, L3100.5125, L500.4050 #### [facility] [address] [facility] [place], [address] ALT [Catalytic activity/Vol] 24 U/L Normal <=34 [facility] Comment on above: Performed By: #### L 100.0100, L506.1001, L500.4100, L3100.5170, L504.2610, L3300.1750, L3100.5400, L801.2600, L3100.5125, L500.4050 #### [facility] [address] [facility] [place], [address] AST [Catalytic activity/Vol] 18 U/L Normal <=31 [facility] Comment on above: Performed By: #### L 100.0100, L506.1001, L500.4100, L3100.5170, L504.2610, L3300.1750, L3100.5400, L801.2600, L3100.5125, L500.4050 #### [facility] [address] [facility] [place], [place], [phone] Bilirubin [Mass/Vol] 0.20 mg/dL Normal 0.00-1.30 [facility] Comment on above: Performed By: #### L 100.0100, L506.1001, L500.4100, L3100.5170, L504.2610, L3300.1750, L3100.5400, L801.2600, L3100.5125, L500.4050 #### [facility] [address] [place], [address] BUN/CRE 32.2 RATIO High 10-20 [facility] Comment on above: Performed By: #### L 100.0100, L506.1001, L500.4100, L3100.5170, L504.2610, L3300.1750, L3100.5400, L801.2600, L3100.5125, L500.4050 #### [facility] [address] [facility] [place], [address] Calcium [Mass/Vol] 9.1 mg/dL Normal 7.6-11.0 [facility] Comment on above: Performed By: #### L 100.0100, L506.1001, L500.4100, L3100.5170, L504.2610, L3300.1750, L3100.5400, L801.2600, L3100.5125, L500.4050 #### [facility] [address] [place], [address] Chloride [Moles/Vol] 104 mmol/L Normal 98-108 [facility] Comment on above: Performed By: #### L 100.0100, L506.1001, L500.4100, L3100.5170, L504.2610, L3300.1750, L3100.5400, L801.2600, L3100.5125, L500.4050 #### [facility] [address] [place], [address] CO2 [Moles/Vol] 21.4 mmol/L Normal 21.0-32.0 [facility] Comment on above: Performed By: #### L 100.0100, L506.1001, L500.4100, L3100.5170, L504.2610, L3300.1750, L3100.5400, L801.2600, L3100.5125, L500.4050 #### [facility] [address] [place], [address] (517) Creatinine [Mass/Vol] 0.34 mg/dL Low 0.70-1.20 [facility] Comment on above: Performed By: #### L 100.0100, L506.1001, L500.4100, L3100.5170, L504.2610, L3300.1750, L3100.5400, L801.2600, L3100.5125, L500.4050 #### [facility] [address] [place], [address] (164) GAP 14 Normal 5-15 [facility] Comment on above: Performed By: #### L 100.0100, L506.1001, L500.4100, L3100.5170, L504.2610, L3300.1750, L3100.5400, L801.2600, L3100.5125, L500.4050 #### [facility] [address] [place], [address] (175) GFR/1.73 sq M.predicted among non-blacks MDRD (S/P/Bld) [Vol rate/Area] 123 mL/min/{1.73_m2} Normal >60 [facility] Comment on above: Result Comment: mL/m in/1.73m2 CKD-EPI Creatinine Equation (2020) Performed By: #### L 100.0100, L506.1001, L500.4100, L3100.5170, L504.2610, L3300.1750, L3100.5400, L801.2600, L3100.5125, L500.4050 #### [facility] [address] [place], [address] (768) Globulin (S) [Mass/Vol] 3.2 g/dL Normal 2.2-4.2 [facility] Comment on above: Performed By: #### L 100.0100, L506.1001, L500.4100, L3100.5170, L504.2610, L3300.1750, L3100.5400, L801.2600, L3100.5125, L500.4050 #### [facility] [address] [place], [address] Glucose [Mass/Vol] 92 mg/dL Normal 70-99 [facility] Comment on above: Performed By: #### L 100.0100, L506.1001, L500.4100, L3100.5170, L504.2610, L3300.1750, L3100.5400, L801.2600, L3100.5125, L500.4050 #### [facility] [address] [place], [address] Potassium [Moles/Vol] 3.8 mmol/L Normal 3.3-5.1 [facility] Comment on above: Performed By: #### L 100.0100, L506.1001, L500.4100, L3100.5170, L504.2610, L3300.1750, L3100.5400, L801.2600, L3100.5125, L500.4050 #### [facility] [address] [place], [address] Sodium [Moles/Vol] 140 mmol/L Normal 133-145 [facility] Comment on above: Performed By: #### L 100.0100, L506.1001, L500.4100, L3100.5170, L504.2610, L3300.1750, L3100.5400, L801.2600, L3100.5125, L500.4050 #### [facility] [address] [place], [address] T PROT 7.4 g/dL Normal 5.9-8.4 [facility] Comment on above: Performed By: #### L 100.0100, L506.1001, L500.4100, L3100.5170, L504.2610, L3300.1750, L3100.5400, L801.2600, L3100.5125, L500.4050 #### [facility] [address] [facility] [place], [address] Urea nitrogen [Mass/Vol] 11 mg/dL Normal 4-19 [facility] Comment on above: Performed By: #### L 100.0100, L506.1001, L500.4100, L3100.5170, L504.2610, L3300.1750, L3100.5400, L801.2600, L3100.5125, L500.4050 #### [facility] [address] [facility] [place], [address] Eosinophil percentageOrdered By: Araceli Hutton on 09-28-2024 Eosinophils/100 WBC (Bld) 2.0 % 0-5 [facility] Erythrocyte distribution wid th ratioOrdered By: Tuthill Brennen on 09-28-2024 Erythrocyte distribution width (RBC) [Ratio] 13.7 % 11.6-14.6 [facility] Erythrocyte distribution wid th standard deviationOrdered By: [facility] on 09-28-2024 Erythrocyte distribution width (RBC) [Ratio] 43.7 fl 35.1-43.9 [facility] Estradiolon 09-28-2024 ESTRADIOL 12.3 pg/mL Normal [facility] Comment on above: Result Comment: FEMA LES ADULT FEMALE: Premenopausal: 15-350 pg/mL(E2 levels vary widely through the menstrual cycle) Postmenopausal: <10 pg/mL PERCY STAGES MEAN AGE REFERENCE RANGES Stage I(>14 days and prepubertal) 7.1 years Undetectable-20 pg/mLL Stage II 10.5 years Undetectable-24 pg/mL Stage III 11.6 years Undetectable-60 pg/mL Stage IV 12.3 years 15-85 pg/mL Stage V 14.5 years 15-350 pg/mL Puberty onset (transition from Percy stage I to Percy stage II) occurs for girls at a median age of 10.5 (/- 2) years. There is evidence that it may occur up to 1 year earlier in obese girls and in girls. Progression through Percy stages is variable. Percy stage V (adult) should be reached by age 18. Performed By: #### L 100.0100, L506.1001, L500.4100, L3100.5170, L504.2610, L3300.1750, L3100.5400, L801.2600, L3100.5125, L500.4050 #### [facility] [address] [place], [place], [id number] Follicle Stimulating Hormone on 09-28-2024 FSH 37.1 mIU/mL Normal [facility] Comment on above: Result Comment: FEMA LE: Follicular: 1.4 - 18.1 mIU/mL Midcycle: 3.4 - 33.4 mIU/mL Luteal: 1.5 - 9.1 mIU/mL Post Menopause: 23.0 - 116.3 mIU/mL MALE: 1.4 - 18.1 mIU/mL Performed By: #### L 100.0100, L506.1001, L500.4100, L3100.5170, L504.2610, L3300.1750, L3100.5400, L801.2600, L3100.5125, L500.4050 #### [facility] [address] [place], [address] Glomerular filtration rate ( GFR) estimation/1.73 sq m using serum, plasma, or whole bOrdered By: Araceli Hutton on 09-28-2024 GFR/1.73 sq M.predicted among non-blacks MDRD (S/P/Bld) [Vol rate/Area] 123 mL/min/{1.73_m2} >60 [facility] Comment on above: mL/min/1.73m2 CKD-EP I Creatinine Equation (2020) Hematocrit Auto (Bld) [Volum e fraction]Ordered By: Araceli Hutton on 09-28-2024 Hematocrit (Bld) [Volume fraction] 42.5 % 37-47 [facility] Hemoglobin measurementOrdere d By: Araceli Hutton on 09-28-2024 Hemoglobin (Bld) [Mass/Vol] 13.7 g/dL 12.0-15.0 [facility] Immature granulocytes/100 WB C Auto (Bld)Ordered By: Araceli Hutton on 09-28-2024 Immature granulocytes/100 WBC (Bld) 0.700 % 0.0-0.9 [facility] Comment on above: IG% - Immature Granu locytes (promyelocytes, myelocytes and metamyelocytes) > 1% indicates that a LEFT SHIFT is Present. LDHon 09-28-2024 LDH 162 U/L Normal 84-246 [facility] Comment on above: Order Comment: 1 Performed By: #### L 100.0100, L506.1001, L500.4100, L3100.5170, L504.2610, L3300.1750, L3100.5400, L801.2600, L3100.5125, L500.4050 ####[facility] [address] [place] [place], [address] LDL calc ser/plasOrdered By: [facility] 09-28-2024 Cholesterol in LDL [Mass/Vol] 145 mg/dL [facility] Comment on above: Ntrscvewrw=779-857 m g/dL & Higher Qvpk=872 mg/dL or greater Laboratory - Chemistry and C hemistry - challengeOrdered By: Aracelicathy Hutton on 09-28-2024 AST [Catalytic activity/Vol] 18 U/L <32 [facility] Lactate dehydrogenase (LDH) measurementOrdered By: Aracelicathy Hutton on 09-28-2024 LDH [Catalytic activity/Vol] 162 U/L 84-246 [facility] Lipid Profileon 09-28-2024 CHOL:HDL 6.69 Normal [facility] Comment on above: Performed By: #### L 100.0100, L506.1001, L500.4100, L3100.5170, L504.2610, L3300.1750, L3100.5400, L801.2600, L3100.5125, L500.4050 #### [facility] [address] [place], [place], [phone] (614) Cholesterol [Mass/Vol] 249 mg/dL High <=200 [facility] Comment on above: Result Comment: Chol esterol level, Desirable <200 mg/dL Borderline high cholesterol 200-239 mg/dL High cholesterol >=240 mg/dL Recommendations of the NCEP Adult Treatment Panel for the following risk-cutoff thresholds for the [place] population. Performed By: #### L 100.0100, L506.1001, L500.4100, L3100.5170, L504.2610, L3300.1750, L3100.5400, L801.2600, L3100.5125, L500.4050 #### [facility] [address] [place], [address] (265) Cholesterol in HDL [Mass/Vol] 37 mg/dL Low [facility] Comment on above: Result Comment: Radha onal Cholesterol Education Program (NCEP) guidelines: <40 mg/dL: Low HDL-cholesterol (major risk factor for CHD) >= 60 mg/dL: High HDL-cholesterol (negative risk factor for CHD) HDL-cholesterol is affected by a number of factors, e.g. smoking, exercise, hormones, sex and age. Performed By: #### L 100.0100, L506.1001, L500.4100, L3100.5170, L504.2610, L3300.1750, L3100.5400, L801.2600, L3100.5125, L500.4050 #### [facility] [address] [place], [place], [phone] (704) Cholesterol in LDL [Mass/Vol] 145 mg/dL Normal [facility] Comment on above: Result Comment: Bord fzfnso=650-777 mg/dL Higher Vitj=064 mg/dL or greater Performed By: #### L 100.0100, L506.1001, L500.4100, L3100.5170, L504.2610, L3300.1750, L3100.5400, L801.2600, L3100.5125, L500.4050 #### [facility] [address] [place], [place], [id number] Cholesterol in VLDL [Mass/Vol] 67 mg/dL High 5-40 [facility] Comment on above: Performed By: #### L 100.0100, L506.1001, L500.4100, L3100.5170, L504.2610, L3300.1750, L3100.5400, L801.2600, L3100.5125, L500.4050 #### [facility] [address] [place], [place], [id number] Triglyceride [Mass/Vol] 336 mg/dL High [facility] Comment on above: Result Comment: The drugs N-Acetylcysteine and Metamizole may falsely depress this assay. Normal range: <150 mg/dL Borderline High: 150-199 mg/dL High: 200-499 mg/dL Very High: >500 mg/dL Performed By: #### L 100.0100, L506.1001, L500.4100, L3100.5170, L504.2610, L3300.1750, L3100.5400, L801.2600, L3100.5125, L500.4050 #### [facility] [address] [place], [place], [id number] Luteinizing Hormoneon 2024 LH 27.4 mIU/mL Normal [facility] Comment on above: Result Comment: FEMA LE: Follicular: 1.9-12.5 mIU/mL Midcycle: 8.7-76.3 mIU/mL Luteal: 0.5-16.9 mIU/mL Post Menopause: 15.9-54.0 mIU/mL MALE: 20-70 Years: 1.5-9.3 mIU/mL >70 Years: 3.1-34.6 mIU/mL Performed By: #### L 100.0100, L506.1001, L500.4100, L3100.5170, L504.2610, L3300.1750, L3100.5400, L801.2600, L3100.5125, L500.4050 #### [facility] [address] [place], [place], [id number] MCV (mean corpuscular volume ) determinationOrdered By: Araceli Hutton on 09-28-2024 MCV (RBC) [Entitic vol] 86.9 fL 81-99 [facility] Mean corpuscular hemoglobin (MCH) determinationOrdered By: Araceli Hutton on 09-28-2024 MCH (RBC) [Entitic mass] 28.0 pg 27.0-32.0 [facility] Mean corpuscular hemoglobin concentration (MCHC) determinationOrdered By: Araceli Hutton on 09-28-2024 MCHC (RBC) [Mass/Vol] 32.2 g/dL 32-36 [facility] Mean platelet volume determi nationOrdered By: Araceli Hutton on 09-28-2024 Platelet mean volume (Bld) [Entitic vol] 9.8 fL 6.2-12.0 [facility] Monocyte percentageOrdered B y: Araceli Hutton on 09-28-2024 Monocytes/100 WBC (Bld) 7.3 % 0-10 [facility] Neutrophil percentageOrdered By: Aracelicathy Hutton on 09-28-2024 Neutrophils/100 WBC (Bld) 59.8 % 47-70 [facility] Nucleated red blood cell per centageOrdered By: Araceli Hutton on 09-28-2024 Nucleated RBC/100 WBC (Bld) [Ratio] 0 % 0-5 [facility] Platelet countOrdered By: Ra betzy Hutton on 09-28-2024 Platelets (Bld) [#/Vol] 397 10*3/uL 150-450 [facility] Potassium measurement (mass/ volume)Ordered By: Araceli Hutton on 09-28-2024 Potassium (Unsp spec) [Mass/Vol] 3.8 mmol/L 3.3-5.1 [facility] RBC Auto (Bld) [#/Vol]Ordere d By: Araceli Hutton on 09-28-2024 RBC (Bld) [#/Vol] 4.89 10*6/uL 4.2-5.4 [facility] Screening total cholesterol/ high density lipoprotein (HDL) cholesterol ratioOrdered By: Araceli Hutton on 09-28-2024 Cholesterol.total/Cholest fox in HDL [Mass ratio] 6.69 {ratio} [facility] Serum creatinine measurement (mass/volume)Ordered By: Araceli Hutton on 09-28-2024 Creatinine [Mass/Vol] 0.34 mg/dL Low 0.70-1.20 [facility] Serum globulin measurementOr dered By: Araceli Hutton on 09-28-2024 Globulin (S) [Mass/Vol] 3.2 g/dL 2.2-4.2 [facility] Serum glucose measurement (m ass/volume)Ordered By: Araceli Hutton on 09-28-2024 Glucose [Mass/Vol] 92 mg/dL 70-99 [facility] Serum or plasma alanine martínez otransferase (ALT) measurementOrdered By: Araceli Hutton on 09-28-2024 ALT [Catalytic activity/Vol] 24 U/L <35 [facility] Serum or plasma albumin manisha urement (mass/volume)Ordered By: Araceli Hutton on 09-28-2024 Albumin [Mass/Vol] 4.3 g/dL 3.5-5.0 [facility] Serum or plasma albumin/glob ulin mass ratioOrdered By: Araceli Hutton on 09-28-2024 Albumin/Globulin [Mass ratio] 1.3 {ratio} 0.9-2.4 [facility] Serum or plasma alkaline leslie sphatase measurementOrdered By: Araceli Hutton on 09-28-2024 ALP [Catalytic activity/Vol] 70 U/L 35-104 [facility] Serum or plasma calcium manisha urement (mass/volume)Ordered By: Araceli Hutton on 09-28-2024 Calcium [Mass/Vol] 9.1 mg/dL 7.6-11.0 [facility] Serum or plasma cholesterol in HDL measurement (mass/volume)Ordered By: Araceli Hutton on 09-28-2024 Cholesterol in HDL [Mass/Vol] 37 mg/dL Low >40 [facility] Comment on above: National Cholesterol Education Program (NCEP) guidelines:<40 mg/dL: Low HDL-cholesterol (major risk factor for CHD)>= 60 mg/dL: High HDL-cholesterol (negative risk factor for CHD)HDL-cholesterol is affected by a number of factors, e.g. smoking, exercise, hormones, sex and age. Serum or plasma cholesterol measurement (mass/volume)Ordered By: Araceli Hutton on 09-28-2024 Cholesterol [Mass/Vol] 249 mg/dL High <201 [facility] Comment on above: Cholesterol level, D esirable <200 mg/dLBorderline high cholesterol 200-239 mg/dLHigh cholesterol >=240 mg/dLRecommendations of the NCEP Adult Treatment Panel for the following risk-cutoff thresholds for the [place] population. Serum or plasma estradiol me asurement after follitropin dose (mass/volume)Ordered By: Araceli Hutton on 09-28-2024 E2 post dose follitropin [Mass/Vol] 12.3 pg/mL [facility] Comment on above: FEMALES ADULT FEMALE : Premenopausal: 15-350 pg/mL(E2 levels vary widely through the menstrual cycle) Postmenopausal: <10 pg/mL PERCY STAGES MEAN AGE REFERENCE RANGES Stage I(>14 days and prepubertal) 7.1 years Undetectable-20 pg/mLL Stage II 10.5 years Undetectable-24 pg/mL Stage III 11.6 years Undetectable-60 pg/mL Stage IV 12.3 years 15-85 pg/mL Stage V 14.5 years 15-350 pg/mL Puberty onset (transition from Percy stage I to Percy stage II) occurs for girls at a median age of 10.5 (/- 2) years. There is evidence that it may occur up to 1 year earlier in obese girls and in girls.Progression through Percy stages is variable. Percy stage V (adult) should be reached by age 18. Serum or plasma prolactin me asurement (mass/volume)Ordered By: Araceli Hutton on 09-28-2024 Prolactin [Mass/Vol] 10.5 ng/mL 3.6-25.2 [facility] Comment on above: Performed at: [address] [id number] Director: David Gates PhD, Phone: [phone] Serum or plasma urea nitroge n measurement (mass/volume)Ordered By: Araceli Hutton on 09-28-2024 Urea nitrogen [Mass/Vol] 11 mg/dL 4-19 [facility] Sodium levelOrdered By: Justinetheresa Hutton on 09-28-2024 Sodium [Moles/Vol] 140 mmol/L 133-145 [facility] Total proteinOrdered By: Debra Hutton on 09-28-2024 Protein [Mass/Vol] 7.4 g/dL 5.9-8.4 [facility] Triglycerides measurementOrd ered By: Araceli Fallongar on 09-28-2024 Triglyceride [Mass/Vol] 336 mg/dL High <199 [facility] Comment on above: The drugs N-Acetylcy steine and Metamizole may falsely depress this assay. Normal range: <150 mg/dLBorderline High: 150-199 mg/dLHigh: 200-499 mg/dLVery High: >500 mg/dL Vitamin D,25 Hydroxyon 09-28 Vitamin D 25-OH 79.2 ng/mL Normal 30-100 [facility] Comment on above: Result Comment: Christy min D Status Deficiency: <20 ng/mL (50nmol/L) Insufficiency: 20-30 ng/mL (50-75 nmol/L) Sufficiency: 30-100 ng/mL (75-250 nmol/L) Toxicity: >100 ng/mL (>250 nmol/L) Performed By: #### L 100.0100, L506.1001, L500.4100, L3100.5170, L504.2610, L3300.1750, L3100.5400, L801.2600, L3100.5125, L500.4050 #### [facility] [address] [place], [address] White blood cell (WBC) count Ordered By: Araceli Brennen on 09-28-2024 WBC (Bld) [#/Vol] 9.2 10*3/uL 4.4-11.0 [facility] Colonoscopy Reporton 024 Colonoscopy Report [facility] Medical Records Department [address] [place] [address] Colonoscopy Report MR#: [id number] Acct: [id number] Name: ROBLES WOODS Rep #: [id number] : 1970 53 From: Trell Reyes DO PCP: HIMANSHU Lockwood Status:REG SDC Patient Name: Robles Woods Procedure Date: 01/10/2024 10:24 AM Date of : 1970 Age: 53 Procedure: Colonoscopy Indications: Screening for colorectal malignant neoplasm Providers: Trell Reyes DO Medicines: Monitored Anesthesia Care Patient Profile: This is a 53 year old female. Refer to note in patient chart for documentation of history and physical. Last Colonoscopy: none. The patient's first colonoscopy is today. Complications: No immediate complications. Procedure: Pre-Anesthesia Assessment: - Prior to the procedure, a History and Physical was performed, and patient medications and allergies were reviewed. The patient is competent. The risks and benefits of the procedure and the sedation options and risks were discussed with the patient. All questions were answered and informed consent was obtained. Patient identification and proposed procedure were verified by the physician in the pre-procedure area. Mental Status Examination: alert and oriented. Airway Examination: normal oropharyngeal airway and neck mobility. Respiratory Examination: clear to auscultation. CV Examination: normal. Prophylactic Antibiotics: The patient does not require prophylactic antibiotics. Prior Anticoagulants: The patient has taken no anticoagulant or antiplatelet agents except for NSAID medication. ASA Grade Assessment: II - A patient with mild systemic disease. After reviewing the risks and benefits, the patient was deemed in satisfactory condition to undergo the procedure. The anesthesia plan was to use monitored anesthesia care (MAC). Immediately prior to administration of medications, the patient was re-assessed for adequacy to receive sedatives. The heart rate, respiratory rate, oxygen saturations, blood pressure, adequacy of pulmonary ventilation, and response to care were monitored throughout the procedure. The physical status of the patient was re-assessed after the procedure. After I obtained informed consent, the scope was passed under direct vision. Throughout the procedure, the patient's blood pressure, pulse, and oxygen saturations were monitored continuously. The colonoscope was introduced through the anus and advanced to the cecum, identified by appendiceal orifice and ileocecal valve. The colonoscopy was performed without difficulty. The patient tolerated the procedure well. The quality of the bowel preparation was adequate. The ileocecal valve, appendiceal orifice, and rectum were photographed. Scope In: 10:31:45 AM Scope Withdrawal Time 0 hours 8 minutes 34 seconds Scope Out: 10:44:04 AM Total Procedure Duration Time 0 hours 12 minutes 19 seconds Findings: The perianal and digital rectal examinations were normal. Multiple small-mouthed diverticula were found in the recto-sigmoid colon, sigmoid colon and descending colon. The exam was otherwise without abnormality on direct and retroflexion views. Impression: - Diverticulosis in the recto-sigmoid colon, in the sigmoid colon and in the descending colon. - The examination was otherwise normal on direct and retroflexion views. - No specimens collected. Recommendation: - Discharge patient to home. - Resume previous diet. - Continue present medications. - Repeat colonoscopy in 10 years for screening purposes. Procedure Code(s): --- Professional --- G0121, Colorectal cancer screening; colonoscopy on individual not meeting criteria for high risk CPT copyright 2021 [employer]. All rights reserved. The codes documented in this report are preliminary and upon ed special education teacher review may be revised to meet current compliance requirements. Trell Reyes DO 01/10/2024 10:48:14 AM This report has been signed electronically. Number of Addenda: 0 Note Initiated On: 01/10/2024 10:24 AM 01/10/24 1048 Date Trell Reyes DO Cosigner Signature: Date (if indicated) CC: HIMANSHU Hutton; Trell Reyes DO Date Dictated: 01/10/24 1024 Date Transcribed: Radio Interference Supervisor: CAMILA Signed Normal [facility] MR/POSTOP.[place] 01-10-2024 MR/POSTOP.[facility] Medical Records Department [address] [place] [address] Anesthesia Postop Eval I 01/10/24 1052 MR#: [id number] Acct: [id number] Name: ROBLES WOODS Rep #: [id number] : 1970 53 From: Tony Mendoza PCP: HIMANSHU Lockwood Status:REG SDC Y Race: C Location: [place] [address] Anesthesia: Postop Eval I Current Vital Signs Temperature: 97.2 F Pulse Rate: 84 Blood Pressure: 125/68 Respiratory Rate: 16 Pulse Ox: 98 Oxygen Delivery Method: Room Air Assessment Airway patent: Yes Spontaneous unlabored respirations: Yes Mental status: Awake and Calm nausea: No Vomiting: No Anesthesia Complication: No Fluid Hydration Crystalloid volume administer (ml): 500 Total IV fluid infused: 500 Progress Note Anesthesia document: Postop Eval 1 completed: Yes 01/10/24 1053 Date Tony Keys Signature: Date CC: Signed Normal [facility] MR/SZZAKARF9ff 01-10-2024 [facility] Medical Records Department [address] [place] [address] Anesthesia Postop Eval II 01/10/24 1055 MR#: [id number] Acct: [id number] Name: ROBLES WOODS Rep #: [id number] : 1970 53 From: Mandeep Walls MD PCP: HIMANSHU Lockwood Status:REG SD Y Race: C Location: [place] [address] Anesthesia Postop Eval I Sum Postop Eval Completion status Anesthesia document: Postop Eval 1 completed: Yes Anesthesia Postop Eval I Summary Anesthesia Postop Eval I Summary: Anesthesia Postop Eval I: Assessment Summary Airway patent Yes 01/10/24 10:53 [email or web address] Spontaneous unlabored Yes 01/10/24 10:53 [email or web address] respirations Mental status Awake,Calm 01/10/24 10:53 [email or web address] nausea No 01/10/24 10:53 [email or web address] Vomiting No 01/10/24 10:53 [email or web address] Anesthesia Postop Eval I: Fluid Summary Crystalloid volume administer 500 01/10/24 10:53 [email or web address] (ml) Colloids volume administered ( ml) Blood Product volume administered (ml) Total IV fluid infused 500 01/10/24 10:53 [email or web address] Anesthesia Postop Eval I: Summary Notes Anesthesia Complication No 01/10/24 10:53 [email or web address] Anesthesia Complication Comment: Post-operative progress note Anesthesia: Postop Eval II Evaluation Mental status: Awake Pain Level: 0 nausea: No Vomiting: No 01/10/24 1055 Date Mandeep Keys Signature: Date CC: Signed Normal [facility] Absolute lymphocyte countOrd ered By: Araceli Hutton on 09-18-2022 Lymphocytes Auto (Unsp spec) [#/Vol] 3.07 10*3/uL 0.83-4.51 [facility] Basophil percentageOrdered B y: Araceli Hutton on 09-18-2022 Basophils/100 WBC (Bld) 0.8 % 0-1 [facility] Bilirubin [Mass/Vol] 0.50 mg/dL 0.20-1.00 [facility] Comment on above: For patients on eltr ombopag therapy, use of Dimension [place] TBIL is not recommended. Chloride [Moles/Vol] 105 mmol/L 98-107 [facility] Cholesterol [Mass/Vol] 182 mg/dL <200 [facility] Comment on above: <200 mg/dL Desirable 200-240 mg/dL Borderline >240 mg/dL High Risk Eosinophils/100 WBC (Bld) 1.8 % 0-5 [facility] Glucose [Mass/Vol] 75 mg/dL 74-106 [facility] Neutrophils (Bld) [#/Vol] 5.1 10*3/uL 2.0-7.7 [facility] Neutrophils/100 WBC (Bld) 55.3 % 47-70 [facility] Potassium [Moles/Vol] 4.0 mmol/L 3.5-5.1 [facility] Protein [Mass/Vol] 7.5 g/dL 6.4-8.2 [facility] Sodium [Moles/Vol] 137 mmol/L 136-145 [facility] Triglyceride [Mass/Vol] 59 mg/dL <199 [facility] Comment on above: The drugs N-Acetylcy steine and Metamizole may falsely depress this assay.Serum Triglycerides Reference Interval Normal <150 mg/dL Borderline high 150 - 199 mg/dL High 200 - 499 mg/dL Very High > or = 500 mg/dL WBC (Bld) [#/Vol] 9.2 10*3/uL 4.4-11.0 [facility] Blood erythrocytes count (nu mber/volume)Ordered By: Araceli Hutton on 09-18-2022 RBC (Bld) [#/Vol] 4.86 10*6/uL 4.2-5.4 [facility] Blood hemoglobin measurement (mass/volume)Ordered By: Araceli Hutton on 09-18-2022 Hemoglobin (Bld) [Mass/Vol] 14.2 g/dL 12.0-15.0 [facility] Blood lymphocytes/100 leukoc ytesOrdered By: Araceli Hutton on 09-18-2022 Lymphocytes/100 WBC (Bld) 33.4 % 19-41 [facility] Blood monocytes/100 leukocyt esOrdered By: Araceli Hutton on 09-18-2022 Monocytes/100 WBC (Bld) 8.2 % 0-10 [facility] Blood platelet mean volumeOr dered By: Araceli Hutton on 09-18-2022 Platelet mean volume (Bld) [Entitic vol] 9.9 fL 6.2-12.0 [facility] Determination of erythrocyte mean corpuscular volume (MCV)Ordered By: Araceli Hutton on 09-18-2022 MCV (RBC) [Entitic vol] 89.7 fL 81-99 [facility] Hematocrit Auto (Bld) [Volum e fraction]Ordered By: Araceli Hutton on 09-18-2022 Hematocrit (Bld) [Volume fraction] 43.6 % 37-47 [facility] Laboratory - Chemistry and C hemistry - challengeOrdered By: Araceli Hutton on 09-18-2022 ALP [Catalytic activity/Vol] 49 U/L 45-117 [facility] ALT [Catalytic activity/Vol] 19 U/L 13-56 [facility] CO2 [Moles/Vol] 26.0 mmol/L 21.0-32.0 [facility] Globulin (S) [Mass/Vol] 4.0 g/dL 2.2-4.2 [facility] Urea nitrogen/Creatinine [Mass ratio] 12.8 mg/mg 10-20 [facility] Laboratory - Hematology and Cell countsOrdered By: Araceli Hutton on 09-18-2022 Erythrocyte distribution width (RBC) [Entitic vol] 41.2 fL 35.1-43.9 [facility] Erythrocyte distribution width (RBC) [Ratio] 12.5 % 11.6-14.6 [facility] Immature granulocytes/100 WBC (Bld) 0.500 % 0.0-0.9 [facility] Comment on above: IG% - Immature Granu locytes (promyelocytes, myelocytes and metamyelocytes) > 1% indicates that a LEFT SHIFT is Present. MCH (RBC) [Entitic mass] 29.2 pg 27.0-32.0 [facility] Nucleated RBC/100 WBC (Bld) [Ratio] 0 % 0-5 [facility] MCHC Auto (RBC) [Mass/Vol]Or dered By: Araceli Hutton on 09-18-2022 MCHC (RBC) [Mass/Vol] 32.6 g/dL 32-36 [facility] No Panel InformationOrdered By: Araceli Hutton on 09-18-2022 Estimated GFR (MDRD) Amer 129 mL/min >60 [facility] Comment on above: GFR Calc Estimated GFR (MDRD) Non-Af Amer 107 mL/min >60 [facility] Comment on above: Non- GFR Calc Vitamin D 25-Hydroxy 34.4 ng/mL [facility] Comment on above: Vitamin D 25(OH) Sta tus Range Deficiency <20 ng/mL (50nmol/L) Insufficiency 20 - 30 ng/mL (50 - 75 nmol/L) Sufficiency 30 - 100 ng/mL (75 - 250 nmol/L) Toxicity >100 ng/mL (>250 nmol/L) Platelets bldOrdered By: Debra Hutton on 09-18-2022 Platelets (Bld) [#/Vol] 411 10*3/uL 150-450 [facility] Serum or plasma albumin manisha urement (mass/volume)Ordered By: Araceli Hutton on 09-18-2022 Albumin [Mass/Vol] 3.5 g/dL 3.2-5.0 [facility] Serum or plasma albumin/glob ulin mass ratioOrdered By: Araceli Hutton on 09-18-2022 Albumin/Globulin [Mass ratio] 0.9 {ratio} 0.9-2.4 [facility] Serum or plasma calcium manisha urement (mass/volume)Ordered By: Araceli Hutton on 09-18-2022 Calcium [Mass/Vol] 9.1 mg/dL 8.5-10.1 [facility] Serum or plasma cholesterol in HDL measurement (mass/volume)Ordered By: Araceli Hutton on 09-18-2022 Cholesterol in HDL [Mass/Vol] 50 mg/dL >40 [facility] Comment on above: The drugs N-Acetylcy steine and Metamizole may falsely depress this assay. Reference Range HDL <40 mg/dL Low HDL Cholesterol HDL >or= 60 mg/dL High HDL Cholesterol Serum or plasma cholesterol in VLDL measurement (mass/volume)Ordered By: Araceli Hutton on 09-18-2022 Cholesterol in VLDL [Mass/Vol] 12 mg/dL 5-40 [facility] Serum or plasma creatinine m easurement (mass/volume)Ordered By: Araceli Hutton on 09-18-2022 Creatinine [Mass/Vol] 0.63 mg/dL 0.55-1.02 [facility] Comment on above: The validity of the calculated GFR & GFRAA in patients over 70 years has not been determined. Clinical correlation is essential. Serum or plasma low density lipoprotein (LDL) cholesterol measurement (mass/volume)Ordered By: Araceli Hutton on 09-18-2022 Cholesterol in LDL [Mass/Vol] 120 mg/dL 0-130 [facility] Serum or plasma urea nitroge n measurement (mass/volume)Ordered By: Araceli Hutton on 09-18-2022 Urea nitrogen [Mass/Vol] 8 mg/dL 7-18 [facility] Thin prep Papanicolaou smear with manual screeningOrdered By: Araceli Hutton on 09-18-2022 Thin prep Papanicolaou smear with manual screening 9 U/L 15-37 [facility] Thin prep Papanicolaou smear with manual screening 6 5-15 [facility] Whole blood hemoglobin A1c/t otal hemoglobin ratio (mass fraction)Ordered By: Araceli Hutton on 09-18-2022 HbA1c (Bld) [Mass fraction] 5.0 % 3.8-5.6 [facility] Comment on above: Normal < 5.7 % Predi abetic 5.7 - 6.4 % Diabetic >or= 6.5 % Please note range changes. CNPTOUTREACHon 06-02-2019 CNPTOUTREACH Patient Outreach (FAMPWS) ---- ROBLES WOODS ([id number]) 1970 F NFR Date Time Provider Department 06/02/19 LRAA BUCHANAN) NELLIEPWS During your visit today, we recorded the following information about you: Lara Buchanan MA 06/02/2019 2:18 PM Signed [facility] DIRECTOR OF ORTHOPEDICS QUICKNOTE Provider Action/FYI: Patients charted reviewed in teamlet with Dr. Mitchell Last patient activity 08-26-15 Last PCP visit 11-10-13 Based on this information Dr. Mitchell has been removed as PCP. Patient identified by name and . Lara Buchanan MA Allergies As of Date: 06/02/2019 (No Known Allergies) Date Reviewed: 10/24/2014 Reviewed by: Oliva Pérez MA - Fully Assessed Reason for Visit: PHMA/Care Gap Outreach [[id number]] Prescriptions as of 06/02/2019 Sig: FLUOXETINE 40 MG CAPSULE Take 1 capsule by mouth once * LAMOTRIGINE 100 MG TABLET Take 3 tablets by mouth once * IBUPROFEN 800 MG TABLET Take 1 tablet by mouth every * LORAZEPAM 1 MG TABLET Take 1 tablet by mouth three * ERGOCALCIFEROL (VITAMIN D2) 1* Take 1 capsule by mouth once * Problem List As Of Date 06/02/2019 Noted Resolved Anxiety [F41.9] 04/09/2011 Myalgia [M79.10] 04/09/2011 Overweight [E66.3] 04/09/2011 Vitamin D deficiency [E55.9] 04/09/2011 Premenopausal menorrhagia [N92.4] 11/10/2012 Obesity, Class III, BMI 40-49.9 (morbid obesity*08/02/2017 Encounter Status:Closed by LARA BUCHANAN on 06/02/19 [facility] PROGRESSon 06-02-2019 PROGRESS HNO ID: [id number] Author: Lara Cobb (Brennen) Chanel Service: ? Author Type: Oracle Fusion Developer Type: Progress Notes Filed: 06/02/2019 2:18 PM Note Text: [facility] DIRECTOR OF ORTHOPEDICS QUICKNOTE Provider Action/FYI: Patients charted reviewed in teamlet with Dr. Mitchell Last patient activity 08-26-15 Last PCP visit 11-10-13 Based on this information Dr. Mitchell has been removed as PCP. Patient identified by name and . Lara Buchanan MA [facility] Vital Signs Date Time Vital Sign Value Performing Clinician Faci lity 05-27-2022 09:12-0500 Body height 158.[address] Neeraj Wright Work Phone: [facility] 05-27-2022 09:01-0500 Body mass index (BMI) [Ratio] 46.7 kg/m2 Dr. Neeraj Wright Work Phone: [facility] 05-27-2022 09:01-0500 Body weight 115.[address] Neeraj Wright Work Phone: [facility] 05-27-2022 09:01-0500 Diastolic blood pressure 80 mm[Hg] Dr. Neeraj Wright Work Phone: [facility] 05-27-2022 09:01-0500 Systolic blood pressure 128 mm[Hg] Dr. Neeraj Wright Work Phone: [facility] Encounters Encounter Date Encounter Type Care Provider Facility Start: 10-18-2024 ambulatory [facility] Facility:[facility] Start: 10-03-2024 Encounter for genera l adult medical examination with abnormal findings Aracelicathy Hutton [facility] Start: 09-28-2024 End: 09-28-2024 ambulatory Araceli Brennen [facility] Work Phone: [facility] Work Phone: Start: 09-28-2024 End: 09-28-2024 Patient encounter procedure Araceli Brennen [facility] [place] Work Phone: Start: 09-28-2024 End: 09-28-2024 ambulatory [facility] Facility:[facility] Start: 01-10-2024 ambulatory [facility] Start: 01-10-2024 End: 01-10-2024 ambulatory [facility] Facility:[facility] Start: 11-23-2023 ambulatory [facility] Start: 09-18-2022 End: 09-18-2022 ambulatory [facility] Work Phone: Start: 09-18-2022 End: 09-18-2022 Patient encounter procedure [facility]-Duane Guerrier [facility] Start: 05-27-2022 End: 05-27-[address] Neeraj Wright Work Phone: [facility] Work Phone: Start: 05-27-2022 End: 05-27-[address] Neeraj Wright Work Phone: [facility] Procedures Date Procedure Procedure Detail Performing Clinician Start: 09-28-2024 Follicle stimulating hormone measurement Araceli Hutton [facility] Work Phone: Comment on above: FEMALE:Follicular: 1 .4 - 18.1 mIU/mLMidcycle: 3.4 - 33.4 mIU/mLLuteal: 1.5 - 9.1 mIU/mLPost Menopause: 23.0 - 116.3 mIU/mLMALE: 1.4 - 18.1 mIU/mL Start: 09-28-2024 Luteinizing hormone measurement Araceli Hutton [facility] Work Phone: Comment on above: FEMALE:Follicular: 1 .9-12.5 mIU/mLMidcycle: 8.7-76.3 mIU/mLLuteal: 0.5-16.9 mIU/mLPost Menopause: 15.9-54.0 mIU/mLMALE:20-70 Years: 1.5-9.3 mIU/mL>70 Years: 3.1-34.6 mIU/mL Start: 09-28-2024 Serum progesterone measurement Araceli Hutton [facility] Work Phone: Comment on above: Follicular phase 0.1 - 0.9 Luteal phase 1.8 - 23.9 Ovulation phase 0.1 - 12.0 First trimester 11.0 - 44.3 Second trimester 25.4 - 83.3 Third trimester 58.7 - 214.0 Postmenopausal 0.0 - 0.1Performed at: [address] [id number] Director: David Gates PhD, Phone: [phone] Start: 09-28-2024 Vitamin D, 25-hydrox y measurement Araceli Hutton NP-C Work Phone: Comment on above: Vitamin D StatusDefi ciency: <20 ng/mL (50nmol/L)Insufficiency: 20-30 ng/mL (50-75 nmol/L)Sufficiency: 30-100 ng/mL (75-250 nmol/L)Toxicity: >100 ng/mL (>250 nmol/L) Start: 05-27-2022 Screening mammography Derian Wright Work Phone: Plan of Treatment Date Care Activity Detail Author Start: 05-27-2022 Patient referral [facility] Work Phone: Patient referral [facility] Work Phone: Payers Date Payer Category Payer Unknown [id number] 2023 Self-pay [id number] 2023 Unknown [id number] 2015 Unknown [employer] [place] [id number] 2010 Unknown [id number] Unknown [id number] [id number] [id number] Unknown [id number] 2.16.8 [id number] Unknown [id number] 2.16.8 [id number] Unknown [id number] 2.16.8 [id number] Unknown [id number] 2.16.8 [id number] Social History Date Type Detail Facility Start: 05-27-2022 End: 05-27-2022 Tobacco smoking status NHIS Unknown if ever smoked [facility] Start: 1970 Sex Assigned At Female [facility] Start: 01-06-2024 Tobacco smoking stat us HIIS Ex-smoker (finding) [facility] Clinical Note 01-10-2024 Note Date & Type Note Facility 01-10-2024 Note [facility] Medical Records Department [address] [place] [address] History Physical Exam 01/10/24 1021 MR#: [id number] Acct: [id number] Name: ROBLES WOODS Rep #: [id number] : 1970 53 From: Trell Friend DO PCP: HIMANSHU Lockwood Status:[facility] Location: [place] [address] HPI - General General Date of Admission: 01/10/24 Date of Service: 01/10/24 Chief Complaint: Screening colonoscopy HPI Narrative ROBLES WOODS, is a 53 F who presents today for screening colonoscopy. She is never had a colonoscopy in the past. She denies any chest pain or shortness of breath. She has past medical history of mild anxiety and ADHD which is controlled with medicines. All other 16 review of systems are negative except those pertinent positive mentioned HPI. [facility] Medical History Wears glasses Post-menopausal Arthritis Former smoker Anxiety Attention deficit disorder (ADD) in adult Obesity Home Medications ???Medication ???Instructions ???Recorded ???Last Taken ???Type klpmcaowfuka-Ty-hbhn-minerals 1 tab PO DAILY 06/08/19 01/09/24 History (Multiple Vitamin, Womens tablet) lorazepam 0.5 mg tablet 0.5 mg PO DAILY PRN anxiety 05/27/22 Unknown History cholecalciferol (vitamin D3) 50 50 mcg PO DAILY 11/23/23 01/09/24 History mcg (2,000 unit) capsule magnesium oxide 200 mg PO DAILY 11/23/23 01/09/24 History dextroamphetamine-amphetamine ER 2 cap PO DAILY 01/06/24 01/09/24 History 30 mg 24hr capsule,extend release zinc gluconate 50 mg tablet 50 mg PO DAILY 01/06/24 01/09/24 History Allergy/AdvReac Type Severity Reaction Status Date / Time naproxen Allergy Mild Swelling Verified 01/10/24 09:18 Sulfa (Sulfonamide Allergy Swelling Verified 01/10/24 09:18 Antibiotics) Family History Mother Heart disease Arthritis Grandmother Bleeding disorder Grandmother Breast cancer Father Heart disease Myocardial infarction Diabetes type 2 Grandfather , age 39 Myocardial infarction Brother Cancer Surgical History History of endometrial ablation History of carpal tunnel surgery Hx of section Social History adopted: No household members: family housing: house number of children: 3 current occupational status: employed current occupation: [employer] pets and animals: Yes sexually active: Yes Smoking Status: Former smoker second hand exposure: Yes alcohol intake: current alcohol intake frequency: a few times a month Alcohol type: wine substance use type: does not use seatbelt use: always do you feel safe at home: Yes additional social history: - Abundio ROS Review of Systems ROS Unobtainable: other Constitutional Constitutional: Denies fatigue, fever(s), poor appetite, weight gain or weight loss ENT HEENT: Denies mouth lesions Cardiovascular Cardiovascular: Denies abdominal bloating, abdominal edema or abdominal pain Respiratory/Chest Respiratory/Chest: Denies change in mental status, change in phlegm color, chest congestion or chest tightness Gastrointestinal Gastrointestinal: Denies belching, bloating, change in bowel habits, change in stool character, chewing difficulty, coffee ground emesis, constipation, cramping, diarrhea, dyspepsia, dysphagia, early satiety, excessive flatus, fecal incontinence, heartburn, hematemesis, hematochezia, hemorrhoids, loose stools, melena, nausea, odynophagia, rectal bleeding, tenesmus, vomiting or weight changes Genitourinary Genitourinary: Denies abdominal discomfort, burning urination or itching Musculoskeletal Musculoskeletal: Reports as per HPI; Denies muscle weakness or myalgias Integumentary Integumentary: Denies jaundice Neurologic Neurologic: Denies lack of coordination or weakness Psychiatric Psychiatric: Denies confusion, depression, memory loss, mood swings, paranoia or suicidal ideation Endocrine Endocrinology: Denies systems reviewed and no addt'l complaints, except as documented Hematologic/Lymphatic Hematologic/Lymphatic: Denies anemia, easy bleeding, easy bruising or lymphadenopathy Allergic/Immunologic Allergic/Immunologic: Denies systems reviewed and no addt'l complaints, except as documented Vital Signs Vital Signs Vital Signs: 01/10/24 09:20 01/10/24 09:20 Temperature 97.3 F L Temperature Source Temporal Pulse Rate 89 Respiratory Rate 18 Respiratory Pattern Normal Blood Pressure 127/73 H Blood Pressure Mean 91 Blood Pressure Source Monitor Blood Pressure Position Sitting Blood Pressure Location Right Arm Pulse Ox 100 Oxygen Delivery Method Room Air Weight (more content not included)... [facility] Evaluation note Note Date & Type Note Facility Evaluation note Diagnosis Onset Date Encounter for routine gyneco logical examination noneactive [facility] Work Phone: Evaluation note Note Date & Type Note Facility Evaluation note No assessment information availa ble [facility] Work Phone: Reason for referral (narrative) Note Date & Type Note Facility Reason for referral (narrative) No reason for referral information available [facility] Work Phone: Summary Purpose Family History No Family History Records Found Relationship Condition Age at Onset Recorded Date/T elaine mother Cardiac disease Unknown Arthritis Unknown grandmother Hemorrhagic disorder Unknown grandmother Malignant neoplasm of breast Unknown father Cardiac disease Unknown Myocardial infarction Unknown Diabetes mellitus Unknown grandfather Myocardial infarction Unknown Relationship Condition Age at Onset Recorded Date/T elaine mother Cardiac disease Unknown Arthritis Unknown grandmother Hemorrhagic disorder Unknown grandmother Malignant neoplasm of breast Unknown father Cardiac disease Unknown Myocardial infarction Unknown Diabetes mellitus Unknown grandfather Myocardial infarction Unknown brother Malignant neoplasm Unknown Advance Directives No Advanced Directives Records FoundNo Advanced Directives Records Found Chief Complaint and Reason for Visit Chief Complaint Annual ([employer]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 Neeraj Wright MD Family Provider Active Dr. Neeraj Wright MD Primary Care Provider Active Team Status: Inactive Member Role Status Dates Dr. Neeraj Wright MD Primary Care Provider, Referring Provider Active HIMANSHU Mullins NP Attending Provider Active Team Status: Inactive Member Role Status Dates Dr. Neeraj Wright MD Primary Care Provider Active HIMANSHU Mullins NP Attending Provider Active Team Status: Active Member Role Status Dates Dr. Neeraj Wright MD Family Provider Active HIMANSHU Lockwood Primary Care Provider Active Team Status: Inactive Member Role Status Dates HIMANSHU Lockwood Primary Care Provider, Attending Joyce rey Active Team Status: Inactive Member Role Status Dates HIMANSHU Lockwood Primary Care Provider Active Start: September 28, 2024 End: September 28, 2024 HIMANSHU Lockwood Attending Provider Active art: September 28, 2024 End: September 28, 2024 HIMANSHU Lockwood Referring Provider Active art: September 28, 2024 End: September 28, 2024 Goals (unrecognized section and content) Goals may be documented in a n alternate sectionGoals may be documented in an alternate sectionGoals may be documented in an alternate section FOR RECORDS PERTAINING TO PATIENTS WHO ARE OR HAVE BEEN ENROLLED IN A CHEMICAL DEPENDENCY/SUBSTANCEABUSE PROGRAM, SOME INFORMATION MAY BE OMITTED. This clinical summary was aggregated from multiple sources. Caution should be exercised in using it in the provision of clinical care. This summary normalizes information from multiple sources, and as a consequence, information in this document may materially change the coding, format and clinical context of patient data. In addition, data may be omitted in some cases. CLINICAL DECISIONS SHOULD BE BASED ON THE PRIMARY CLINICAL RECORDS. [facility] [employer] [facility]. provides no warranty or guarantee of the accuracy or completeness of information in this document.
== END | disposition home or self-care (01) ==
LOC: OPBI 07:22
PROVIDERS: PCP Nurse Practitioner Family; Referring Provider Nurse Practitioner Family; Visit Provider Nurse Practitioner Family
DX: Z12.31 Encounter for screening mammogram for malignant neoplasm of breast (principal)
CPT/HCPCS: 77063; 77067